=== PATIENT | female | born 1930 | race African-American/Black ===

== ENCOUNTER 2016-11-01 09:40 | Emergency (ER) | payer OTHER ==
[~2016-11-01] VITALS: Ht 160 cm; Wt 89.5 kg
[~2016-11-01 09:40] MED LIST: AMLO5TAB96 PO; ATOR80TA41 PO; COZA50TA PO; DYAZ37.57 PO; FIORTAB4 PO; GLUC10TA3 PO; HYDR-3533 PO; LANTUSP SQ; LEVO.05 PO; LORTA5 PO; NOVOLOGP2 SQ; RANI150 PO; SYMB80AE INH; TAB-TAB PO; VITA-13 PO
[2016-11-01 09:43] VITALS: BP 145/72; PULSE 90; RESP 20; TEMP 98.5; O2SAT 100
--- NOTE | 2016-11-01 10:11 | PD ---
HPI Chief Complaint: Injury Time Seen by Provider: 10:05 Travel History International Travel<30 days: No Contact w/Intl Traveler<30days: No Traveled to known affect area: No History of Present Illness HPI 86-year-old female here for evaluation of right foot pain. Patient reports that she has had this pain intermittently, however since yesterday it has been constant and severe. She denies trauma. Pain is worse with movement and palpation. She shows me diclofenac cream that her diamond die polisher prescribed to her about a year ago which she has been trying without relief. No fevers. PFSH Past Medical History Hx Anticoagulant Therapy: Yes Arthritis: Yes Autoimmune Disease: No Blood Disorders: No Heart Rhythm Problems: No Cancer: No Cardiac Catheterization: No Cardiovascular Problems: Yes (HTN) High Cholesterol: Yes Chemotherapy: No Chest Pain: No Congestive Heart Failure: No Cerebrovascular Accident: No Diabetes: Yes Diminished Hearing: No Endocrine: Yes Gastrointestinal Disorders: Yes (GALLSTONES) GERD: Yes Genitourinary: Yes (URGENCY) Hepatitis: No Hypertension: Yes Immune Disorder: No Implanted Vascular Access Dvce: Yes Kidney Stones: No Musculoskeletal: Yes (CHRONIC BACK PAIN) Neurologic: Yes Psychiatric: No Reproductive: No Respiratory: Yes (Asthma) Integumentary: Yes (SHINGLES) Migraines: Yes Myocardial Infarction: No Radiation Therapy: No Renal Failure: No Thyroid Disease: Yes Ulcer: No PNEUMOCCOCAL Vaccine (Year): 2009 ?: Unknown Menopausal: Yes : 5 Para: 5 Miscarriage: 0 : 0 Past Surgical History Abdominal Surgery: Yes ( ) Appendectomy: Yes Body Medical Devices: cataract surgery,LEFT KNEE Cholecystectomy: No Coronary Artery Bypass Graft: No Eye Surgery: Yes (taylor cataracts removed) Gynecologic Surgery: Yes (HYSTERECTOMY) Hysterectomy: Yes Insulin Pump: No Joint Replacement: No Pacemaker: No Thoracic Surgery: No Other Surgery: Yes (RIGHT CARPAL TUNNEL; LYMPH NODE REMOVAL NECK) Social History Alcohol Use: No Tobacco Use: No Substance Use: No Allergies-Medications (Allergen,Severity, Reaction): Coded Allergies: Flexeril (Verified Allergy, Intermediate, DIZZY, 11/01/16) Reported Meds & Prescriptions Reported Meds & Active Scripts Active Reported [Insulin] Clopidogrel (Clopidogrel Bisulfate) 75 Mg Tab 75 Mg PO DAILY Triamterene-Hydrochlorothiazide 37.5-25 Mg Tab 1 Tab PO DAILY Levothyroxine (Levothyroxine Sodium) 50 Mcg Tab 50 Mcg PO DAILY Losartan (Losartan Potassium) 100 Mg Tab 100 Mg PO DAILY Ranitidine (Ranitidine HCl) 150 Mg Tab 150 Mg PO BID Divalproex ER (Divalproex Sodium) 250 Mg Haylee 250 Mg PO DAILY Review of Systems Except as stated in HPI: all other systems reviewed are Neg Physical Exam Narrative GENERAL: Well-developed, well-nourished, no apparent distress. SKIN: Focused skin assessment warm/dry. No rash. No ulcerations. HEAD: Atraumatic. Normocephalic. EYES: Pupils equal and round. No scleral icterus. No injection or drainage. ENT: Mucous membranes pink and moist. CARDIOVASCULAR: Regular rate and rhythm. Bilateral dorsalis pedis pulses are brisk and equal. RESPIRATORY: No accessory muscle use. Clear to auscultation. Breath sounds equal bilaterally. GASTROINTESTINAL: Abdomen soft, non-tender, nondistended. Hepatic and splenic margins not palpable. MUSCULOSKELETAL: Right foot/ankle is without obvious deformity, without edema, without erythema, without skin lesions or ulcerations, is warm throughout with normal capillary refill. There is tenderness over the dorsal aspect of the entire right foot. Bilateral calves are supple, nontender. NEUROLOGICAL: Awake and alert. No obvious cranial nerve deficits. Motor grossly within normal limits. Normal speech. PSYCHIATRIC: Appropriate mood and affect; insight and judgment normal. Data Data Last Documented VS Vital Signs Date Time Temp Pulse Resp B/P Pulse Ox O2 Delivery O2 Flow Rate FiO2 11/01/16 09:43 98.5 90 20 145/72 100 Room Air Orders Foot, Complete ([id number]) (11/01/16 ) Tramadol (Ultram) (11/01/16 10:15) [facility] Medical Decision Making Medical Screen Exam Complete: Yes Emergency Medical Condition: Yes Differential Diagnosis Osteoarthritis, stress fracture, osteomyelitis unlikely, DVT unlikely, Narrative Course Vital signs show heart rate 90, blood pressure 145/72, pulse ox 100% on room air , oral temp of 98.5F. Right foot x-ray: CONCLUSION: Moderate severity tarsometatarsal joint arthrosis. Patient was made aware of all findings. She is resting comfortably watching TV. She is stable for discharge home with outpatient follow-up with her diamond die polisher this week. I will discharge her home with a pain medication. She was instructed not to drive while taking this medication. She was informed on when to return to the emergency department. She verbalizes understanding and agreement with plan. Diagnosis Primary Impression: Right foot pain Additional Impression: Osteoarthritis Qualified Code: M19.071 - Osteoarthritis of right foot, unspecified osteoarthritis type Referrals: Manager Transmission 3 days Additional Instructions: Follow-up with your diamond die polisher this week. Return to the emergency department for worsening symptoms or any other concerns. Scripts Tramadol 50 Mg Tab50 Mg PO Q8H PRN (PAIN) #15 TAB Ref 0 Prov:Gilbert Ramos MD 11/01/16 Disposition: 01 DISCHARGE HOME Condition: Stable Gilbert Ramos MD November 01, 2016 10:11
[2016-11-01] MEDS ORDERED: traMADol HCL 50 MG TAB PO ONE (10:15)
[2016-11-01] MEDS ORDERED: RANI150T PO (10:24)
[2016-11-01] MEDS ORDERED: LOSA100T PO (10:24)
[2016-11-01] MEDS ORDERED: DIVA250T3 PO (10:24)
[2016-11-01] MEDS ORDERED: CLOP75TA PO (10:24)
[2016-11-01] MEDS ORDERED: INSULIN (10:24)
[2016-11-01] MEDS ORDERED: LEVO50TA4 PO (10:24)
[2016-11-01] MEDS ORDERED: TRIA37.5 PO (10:24)
--- NOTE | 2016-11-01 11:38 | RADRPT ---
EXAM DATE/TIME: 11/01/2016 10:28 [facility] COMPARISON: No previous studies available for comparison. INDICATIONS : Right foot pain on and off for the past month. MEDICAL HISTORY : Diabetes mellitus type II. SURGICAL HISTORY : None. ENCOUNTER: Initial ACUITY: 1 month PAIN SCORE: 10/10 LOCATION: Right foot. FINDINGS: 3 views of the right foot. Moderate-sized osteophytes and moderate severity narrowing at the tarsomet atarsal joints. Alignment within normal limits. No evidence of fracture. No evidence of focal bone erosion or abnorma l periosteal reaction. CONCLUSION: Moderate severity tarsometatarsal joint arthrosis. Blair Lopez MD on November 01, 2016 at 11:36 Board Certified Radiologist. This report was verified electronically.
[2016-11-01] MEDS ORDERED: TRAM50TA PO (11:45)
== END 2016-11-01 12:30 | disposition home or self-care (01) ==
LOC: NEPD 09:40
DX: M79.671 Pain in right foot (principal); M19.071 Primary osteoarthritis, right ankle and foot; I10 Essential (primary) hypertension; E78.00 Pure hypercholesterolemia, unspecified; E11.9 Type 2 diabetes mellitus without complications; K21.9 Gastro-esophageal reflux disease without esophagitis; J45.909 Unspecified asthma, uncomplicated; Z79.01 Long term (current) use of anticoagulants
CPT/HCPCS: 73630; 99283

== ENCOUNTER 2016-11-14 01:41 | Observation (INO) | payer OTHER ==
[~2016-11-14] VITALS: Ht 160 cm; Wt 89.0 kg
[2016-11-14] VITALS (9 sets, daily range): BP systolic 129–170; BP diastolic 57–99; PULSE 66–89; RESP 16–23; TEMP 97.5–98.7; O2SAT 97–100
[~2016-11-14 01:41] MED LIST changes: -AMLO5TAB96 PO; -ATOR80TA41 PO; +CLOP75TA PO; -COZA50TA PO; +DIVA250T3 PO; -DYAZ37.57 PO; -FIORTAB4 PO; -GLUC10TA3 PO; -HYDR-3533 PO; +INSULIN; -LANTUSP SQ; -LEVO.05 PO; +LEVO50TA4 PO; -LORTA5 PO; +LOSA100T PO; -NOVOLOGP2 SQ; -RANI150 PO; +RANI150T PO; -SYMB80AE INH; -TAB-TAB PO; +TRAM50TA PO; +TRIA37.5 PO; -VITA-13 PO
[2016-11-14] MEDS ORDERED: NOVONP2 SQ (01:51)
[2016-11-14] MEDS ORDERED: SODIUM CHLORIDE 0.9% FLUSH 10 ML FLUSH IV FLUSH PRN ×2 (03:00→05:00)
--- NOTE | 2016-11-14 03:13 | PD ---
HPI Chief Complaint: Pain: Acute or Chronic Time Seen by Provider: 02:51 Travel History International Travel<30 days: No Contact w/Intl Traveler<30days: No Traveled to known affect area: No History of Present Illness HPI 86-year-old female presents to the emergency department by EMS transport from home for feeling 'sick'. According the patient she has been in her usual state of health with history of diabetes and hypertension and kidney disease. Patient states that she went to bed feeling well last evening. Patient states she was awakened from sleep just feeling 'sick'. No nausea no vomiting but felt chilled and thought perhaps she was feverish. 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 Patient denies any chest pain or shortness of breath or pleuritic pain. Patient states since arriving to the emergency department she's noted some abdominal discomfort. Patient denies any lower extremity numbness tingling or weakness bladder or bowel dysfunction or saddle anesthesia. Overall discomfort is 6/10 in intensity. Patient does not take blood thinning agent. Patient has been taking her medications as prescribed. PFSH Past Medical History Narrative Medical Hypertension diabetes dyslipidemia gallstones status post cholecystectomy chronic pain syndrome shoulder arthritis cholecystectomy appendectomy hysterectomy eye surgery carpal tunnel release; no tobacco use; nursing notes reviewed Hx Anticoagulant Therapy: Yes Arthritis: Yes Autoimmune Disease: No Blood Disorders: No Heart Rhythm Problems: No Cancer: No Cardiac Catheterization: No Cardiovascular Problems: Yes (HTN) High Cholesterol: Yes Chemotherapy: No Chest Pain: No Congestive Heart Failure: No Cerebrovascular Accident: No Diabetes: Yes Patient Takes Glucophage: No Diminished Hearing: No Endocrine: Yes Gastrointestinal Disorders: Yes (GALLSTONES) GERD: Yes Genitourinary: Yes (URGENCY) Hepatitis: No Hypertension: Yes Immune Disorder: No Implanted Vascular Access Dvce: Yes Kidney Stones: No Musculoskeletal: Yes (CHRONIC BACK PAIN) Neurologic: Yes Psychiatric: No Reproductive: No Respiratory: Yes (Asthma) Integumentary: Yes (SHINGLES) Migraines: Yes Myocardial Infarction: No Radiation Therapy: No Renal Failure: No Thyroid Disease: Yes Ulcer: No PNEUMOCCOCAL Vaccine (Year): 2009 Menopausal: Yes : 5 Para: 5 Miscarriage: 0 : 0 Past Surgical History Abdominal Surgery: Yes ( ) Appendectomy: Yes Body Medical Devices: cataract surgery,LEFT KNEE Cholecystectomy: No Coronary Artery Bypass Graft: No Eye Surgery: Yes (taylor cataracts removed) Gynecologic Surgery: Yes (HYSTERECTOMY) Hysterectomy: Yes Insulin Pump: No Joint Replacement: No Pacemaker: No Thoracic Surgery: No Other Surgery: Yes (RIGHT CARPAL TUNNEL; LYMPH NODE REMOVAL NECK) Social History Alcohol Use: No Tobacco Use: No (many yrs ago) Substance Use: No Allergies-Medications (Allergen,Severity, Reaction): Coded Allergies: Flexeril (Verified Allergy, Intermediate, DIZZY, 11/14/16) Reported Meds & Prescriptions Reported Meds & Active Scripts Active Reported Novolin N Inj (Insulin Human NPH) 1,000 Unit/10 Ml Vial 0 SQ DIRECTED Sliding Scale As Directed. Triamterene-Hydrochlorothiazide 37.5-25 Mg Tab 1 Tab PO DAILY Levothyroxine (Levothyroxine Sodium) 50 Mcg Tab 50 Mcg PO DAILY Ranitidine (Ranitidine HCl) 150 Mg Tab 150 Mg PO BID Divalproex ER (Divalproex Sodium) 250 Mg Haylee 250 Mg PO DAILY Review of Systems Except as stated in HPI: all other systems reviewed are Neg General / Constitutional: Positive: Chills, No: Fever HENT: No: Congestion Cardiovascular: No: Chest Pain or Discomfort, Diaphoresis, Syncope, Dyspnea on exertion Respiratory: No: Cough, Shortness of Breath, Wheezing Gastrointestinal: Positive: Abdominal Pain, No: Nausea, Vomiting, Diarrhea Genitourinary: No: Urgency, Frequency, Dysuria, Flank Pain Musculoskeletal: Positive: Pain, No: Myalgias, Arthralgias Skin: No Rash Neurologic: No: Weakness, Dizziness, Syncope, Focal Abnormalities, Coordination Problem Psychiatric: Positive: Anxiety Hematologic/Lymphatic: No: Lymph Node Enlargement Physical Exam Narrative GENERAL: Well-developed well-nourished female in no acute distress no respiratory distress; GCS 15 SKIN: Warm and dry. HEAD: Atraumatic. Normocephalic. EYES: Pupils equal and round. No scleral icterus. No injection or drainage. ENT: No nasal bleeding or discharge. Mucous membranes pink and moist. NECK: Trachea midline. No JVD. CARDIOVASCULAR: Regular rate and rhythm. RESPIRATORY: No accessory muscle use. Clear to auscultation. Breath sounds equal bilaterally. GASTROINTESTINAL: Abdomen soft, non-tender, nondistended. Hepatic and splenic margins not palpable. MUSCULOSKELETAL: Extremities without clubbing, cyanosis, or edema. No obvious deformities. NEUROLOGICAL: Awake and alert. No obvious cranial nerve deficits. Motor grossly within normal limits. Five out of 5 muscle strength in the arms and legs. No pronator drift no limb ataxia. Normal speech. PSYCHIATRIC: Appropriate mood and affect; insight and judgment normal. Data Data Last Documented VS Vital Signs Date Time Temp Pulse Resp B/P Pulse Ox O2 Delivery O2 Flow Rate FiO2 11/14/16 03:12 18 99 Room Air 11/14/16 01:44 98.4 89 131/99 Orders Complete Blood Count With Diff (11/14/16 02:51) Comprehensive Metabolic Panel (11/14/16 02:51) Lipase (11/14/16 02:51) Lactic Acid (11/14/16 02:51) Urinalysis - C+S If Indicated (11/14/16 02:51) Iv Access Insert/Monitor (11/14/16 02:51) Ecg Monitoring (11/14/16 02:51) Oximetry (11/14/16 02:51) Sodium Chloride 0.9% Flush (Ns Flush) (11/14/16 03:00) Electrocardiogram (11/14/16 02:51) Troponin I (11/14/16 02:51) Chest, Single Ap (11/14/16 ) Magnesium (Mg) (11/14/16 02:51) Sodium Chlorid 0.9% 500 Ml Inj (Ns 500 M (11/14/16 04:30) Potassium, Serum (K) (11/14/16 04:17) Admit Order (Ed Use Only) (11/14/16 ) ^ Saline Lock (11/14/16 05:00) Resp Oxygen Donnie C Titrat 1-4 L (11/14/16 ) Notify Dr: Other (11/14/16 05:00) Sodium Chloride 0.9% Flush (Ns Flush) (11/14/16 09:00) Sodium Chloride 0.9% Flush (Ns Flush) (11/14/16 05:00) Pantoprazole Inj (Protonix Inj) (11/14/16 05:15) Nitroglycerin 2% Oint (Nitroglycerin 2% (11/14/16 05:15) Ondansetron Inj (Zofran Inj) (11/14/16 05:15) Labs Laboratory Tests Test 11/14/16 11/14/16 11/14/16 11/14/16 02:40 03:07 04:30 05:00 White Blood Count 9.2 TH/MM3 Red Blood Count 3.76 MIL/MM3 Hemoglobin 10.8 GM/DL Hematocrit 32.9 % Mean Corpuscular Volume 87.7 FL Mean Corpuscular Hemoglobin 28.8 PG Mean Corpuscular Hemoglobin 32.8 % Concent Red Cell Distribution Width 14.4 % Platelet Count 213 TH/MM3 Mean Platelet Volume 10.5 FL Neutrophils (%) (Auto) 53.8 % Lymphocytes (%) (Auto) 36.4 % Monocytes (%) (Auto) 7.3 % Eosinophils (%) (Auto) 2.0 % Basophils (%) (Auto) 0.5 % Neutrophils # (Auto) 5.0 TH/MM3 Lymphocytes # (Auto) 3.4 TH/MM3 Monocytes # (Auto) 0.7 TH/MM3 Eosinophils # (Auto) 0.2 TH/MM3 Basophils # (Auto) 0.0 TH/MM3 CBC Comment DIFF FINAL Differential Comment Sodium Level 139 MEQ/L Potassium Level 5.3 MEQ/L 4.3 MEQ/L Chloride Level 107 MEQ/L Carbon Dioxide Level 22.1 MEQ/L Anion Gap 10 MEQ/L Blood Urea Nitrogen 44 MG/DL Creatinine 1.81 MG/DL Estimat Glomerular Filtration 32 ML/MIN Rate Random Glucose 167 MG/DL Calcium Level 8.5 MG/DL Magnesium Level 1.7 MG/DL Total Bilirubin 0.2 MG/DL Aspartate Amino Transf 15 U/L (AST/SGOT) Alanine Aminotransferase 20 U/L (ALT/SGPT) Alkaline Phosphatase 81 U/L Troponin I 0.07 NG/ML Total Protein 7.2 GM/DL Albumin 3.3 GM/DL Lipase 362 U/L Lactic Acid Level 0.8 mmol/L Urine Color LIGHT-YELLOW Urine Turbidity HAZY Urine pH 5.0 Urine Specific [place] 1.009 Urine Protein NEG mg/dL Urine Glucose (UA) NEG mg/dL Urine Ketones NEG mg/dL Urine Occult Blood NEG Urine Nitrite NEG Urine Bilirubin NEG Urine Urobilinogen LESS THAN 2.0 MG/DL Urine Leukocyte Esterase SMALL Urine RBC 1 /hpf Urine WBC 1 /hpf Urine Squamous Epithelial 1 /hpf Cells Urine Mucus FEW /lpf Microscopic Urinalysis Comment CULT NOT INDICATED MDM Medical Decision Making Medical Screen Exam Complete: Yes Emergency Medical Condition: Yes Medical Record Reviewed: Yes Interpretation(s) Last Impressions Chest X-Ray 11/14/16 0000 Signed Impressions: Service Date/Time: Monday, November 14, 2016 03:12 - CONCLUSION: 1. No acute cardiopulmonary disease. Darrell Clifford MD CBC & BMP Diagram 11/14/16 02:40 Vital Signs Date Time Temp Pulse Resp B/P Pulse Ox O2 Delivery O2 Flow Rate FiO2 11/14/16 03:12 18 99 Room Air 11/14/16 01:44 98.4 89 16 131/99 100 Differential Diagnosis Generalized weakness, UTI, sepsis, arrhythmia, electrolyte disturbance, chest pain, ACS, abdominal pain, colitis, diverticulitis, food borne illness, aneurysm Narrative Course IV access obtained specimens collected and sent for resulting EKG performed She reports she feels clinically improved has noted increased belching does not have any abdominal discomfort at this time there is been no nausea or vomiting or shortness of breath denies chest pain Lab values resulted and identified to have improving renal insufficiency; there is a mild elevation of potassium at 5.3 Patient given IV fluid bolus 500 cc normal saline and recall left of serum potassium performed Patient identified to have elevation of troponin I 0.07 which may reflect renal function however in view of patient's generalized weakness and not feeling well upon awakening will admit patient for serial enzymes and further cardiac assessment Call placed to [facility] service Physician Communication Physician Communication call placed to [facility] --discussed with Dr Camargo --will admit Diagnosis Primary Impression: Generalized weakness Additional Impressions: Elevated troponin Renal insufficiency Admitting Information Admitting Physician Requests: Observation Ernestina Yanes MD Nov 14, 2016 03:13
[2016-11-14 03:37] LABS: BASOPHIL % 0.5 % (0.0-2.0); EOSINOPHIL # 0.2 TH/MM3 (0-0.4); HEMATOCRIT 32.9 % (35.0-46.0); HEMO FLAGS DIFF FINAL; LYMPH % 36.4 % (9.0-44.0); LYMPHOCYTE # 3.4 TH/MM3 (1.0-4.8); MEAN CELL VOLUME 87.7 FL (80.0-100.0); MEAN CORPUSCULAR HEMOGLOBIN 28.8 PG (27.0-34.0); MEAN CORPUSCULAR HGB CONC 32.8 % (32.0-36.0); MONO % 7.3 % (0.0-8.0); NEUT % 53.8 % (16.0-70.0); PLATELET COUNT 213 TH/MM3 (150-450); RED BLOOD COUNT 3.76 MIL/MM3 (4.00-5.30); RED CELL DISTRIBUTION WIDTH 14.4 % (11.6-17.2); WHITE BLOOD COUNT 9.2 TH/MM3 (4.0-11.0)
[2016-11-14 03:53] LABS: ALT (GPT) 20 U/L (10-53); ANION GAP 10 MEQ/L (5-15); AST (GOT) 15 U/L (15-37); BICARBONATE 22.1 MEQ/L (21.0-32.0); BLOOD UREA NITROGEN 44 MG/DL (7-18); CHLORIDE 107 MEQ/L (98-107); GLOMERULAR FILTRATION RATE 32 ML/MIN (>89); MAGNESIUM 1.7 MG/DL (1.5-2.5); POTASSIUM 5.3 MEQ/L (3.5-5.1); SODIUM (NA) 139 MEQ/L (136-145)
[2016-11-14 03:57] LABS: ALKALINE PHOSPHATASE 81 U/L (45-117); TOTAL BILIRUBIN ADULT 0.2 MG/DL (0.2-1.0)
--- NOTE | 2016-11-14 04:01 | RADRPT ---
EXAM DATE/TIME: 11/14/2016 03:12 [facility] COMPARISON: CHEST SINGLE AP, July 21, 2013, 23:00. INDICATIONS : Cough and congestion. MEDICAL HISTORY : None. SURGICAL HISTORY : None. ENCOUNTER: Initial ACUITY: 2 days PAIN SCORE: 0/10 LOCATION: chest FINDINGS: A single view of the chest demonstrates the lungs to be symmetrically aerated without evidence of mas s, infiltrate or effusion. The cardiomediastinal contours are unremarkable. Osseous structures are intact. CONCLUSION: 1. No acute cardiopulmonary disease. Darrell Clifford MD on November 14, 2016 at 3:54 Board Certified Radiologist. This report was verified electronically.
[2016-11-14] MEDS ORDERED: SODIUM CHLORID 0.9% 500 ML INJ 500 ML IV ONE (04:30)
[2016-11-14 04:57] LABS: BLOOD, URINE NEG (NEG); COMMENT (UR) CULT NOT INDICATED; CULTURE IF INDICATED CULT NOT INDICATED; GLUCOSE,URINE NEG (NEG); KETONE, URINE NEG (NEG); MUCUS URINE FEW /lpf (OCC); NITRITE,URINE NEG (NEG); SQUAMOUS EPITHELIAL CELL URINE 1 /hpf (0-5); URINE COLOR LIGHT-YELLOW (YELLW/STRAW)
[2016-11-14] MEDS ORDERED: SODIUM CHLORIDE 0.9% FLUSH 10 ML FLUSH IVF PRN (05:00)
[2016-11-14] MEDS ORDERED: NALOXONE HCL 0.4 MG/ML AMP IV PRN (05:00)
[2016-11-14] MEDS ORDERED: ONDANSETRON HCL 4 MG/2 ML VIAL IV PUSH ONE (05:15)
[2016-11-14] MEDS ORDERED: PANTOPRAZOLE SODIUM 40 MG VIAL IV PUSH ONE (05:15)
[2016-11-14] MEDS ORDERED: NITROGLYCERIN 2% OINT 1 GM PACKET TOPICAL ONE (05:15)
[2016-11-14] MEDS ORDERED: LEVOTHYROXINE SODIUM 50 MCG TAB PO SCH (08:41)
[2016-11-14] MEDS ORDERED: DEXTROSE 50% IN WATER 50 ML VIAL(D50) IV PRN (08:45)
[2016-11-14] MEDS ORDERED: SODIUM CHLOR 0.9% 1000 ML INJ 1,000 ML IV SCH (08:45)
[2016-11-14] MEDS ORDERED: GLUCAGON 1 MG/ML VIAL OTHER PRN (08:45)
[2016-11-14] MEDS ORDERED: FAMOTIDINE 20 MG TAB PO SCH (09:00)
[2016-11-14] MEDS ORDERED: SODIUM CHLORIDE 0.9% FLUSH 10 ML FLUSH IV FLUSH SCH ×2 (09:00)
[2016-11-14] MEDS ORDERED: DIVALPROEX SODIUM E.R. 250 MG TAB PO SCH (09:00)
[2016-11-14] MEDS ORDERED: INSULIN ASPART SUPPLEMENTAL SCALE SQ SCH (11:00)
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
[2016-11-14] MEDS ORDERED: OMEP40CA2 PO (17:16)
[2016-11-14] MEDS ORDERED: WALKER WHEELS/F1 MIS (17:16)
--- NOTE | 2016-11-14 17:17 | HHI.FF ---
Face to Face Verification Diagnosis: (1) Generalized weakness Physical Therapy Order: Evaluate and Treat Home Health Nursing Order: Nursing assessment with vital signs I have seen patient Liliana Easley on 11/14/16. My clinical findings support the need for the requested home health care services because: Deconditioned w/ increased weakness I certify that my clinical findings support that this patient is homebound because: Unsafe to leave home unassisted Darren Ramirez MD Nov 14, 2016 17:17
[2016-11-14] MEDS ORDERED: PANTOPRAZOLE SOD 40 MG DELAYED RELEASE TAB PO ONE (17:30)
--- NOTE | 2016-11-15 15:08 | EKG ---
Date Performed: 11/14/2016 Time Performed: 15:51:02 PTAGE: 86 years EKG: Intraventricular conduction disturbance Diffuse nonspecific ST-T change Since PREVIOUS TRACING 11/14/2016, no significant change. PREVIOUS TRACIN11/14/2016 09.43 DOCTOR: David De La Paz Interpretating Date/Time 11/15/2016 15:07:55
--- NOTE | 2016-11-15 15:08 | EKG ---
Date Performed: 11/14/2016 Time Performed: 09:43:29 PTAGE: 86 years EKG: Borderline first degree AV block Diffuse nonspecific ST-T change Slight intraventricular co nduction disturbance Borderline voltage criteria for LVH Since PREVIOUS TRACING 03/08/2014, voltage criteria for LVH somewhat diminished, ST-T changes are about the same. PREVIOUS TRACIN03/08/2014 06.26 DOCTOR: David De La Paz Interpretating Date/Time 11/15/2016 15:06:56
== END 2016-11-14 19:17 | disposition home or self-care (01) ==
LOC: NEPC 01:41 → NEDA 05:02 → NEPHCDU 06:16
PROVIDERS: ADMIT Hospitalist; ATTEND Hospitalist
DX: R53.1 Weakness (principal); R74.8 Abnormal levels of other serum enzymes; N18.4 Chronic kidney disease, stage 4 (severe); R10.9 Unspecified abdominal pain; E03.9 Hypothyroidism, unspecified; E11.22 Type 2 diabetes mellitus with diabetic chronic kidney disease; G89.4 Chronic pain syndrome; I12.9 Hypertensive chronic kidney disease with stage 1 through stage 4 chronic kidney disease, or unspecified chronic kidney disease; R94.31 Abnormal electrocardiogram [ECG] [EKG]; M19.019 Primary osteoarthritis, unspecified shoulder; J45.909 Unspecified asthma, uncomplicated; E78.5 Hyperlipidemia, unspecified; E78.00 Pure hypercholesterolemia, unspecified; G40.909 Epilepsy, unspecified, not intractable, without status epilepticus; K21.9 Gastro-esophageal reflux disease without esophagitis; Z87.891 Personal history of nicotine dependence; Z79.01 Long term (current) use of anticoagulants
CPT/HCPCS: 71010; 80053; 81001; 82550; 82948; 83605; 83690; 83735; 84132; 84484; 85025; 93005; 97162; 99285; C9113; G0378; G8987; G8988; J1815; J2405; J7030; J7040

== ENCOUNTER 2016-11-29 15:27 | Emergency (ER) | payer OTHER ==
[~2016-11-29] VITALS: Ht 160 cm; Wt 90.0 kg
[~2016-11-29 15:27] MED LIST changes: -CLOP75TA PO; -INSULIN; -LOSA100T PO; +NOVONP2 SQ; +OMEP40CA2 PO; -RANI150T PO; -TRAM50TA PO; +WALKER WHEELS/F1 MIS
[2016-11-29 15:32] VITALS: BP 181/86; PULSE 98; RESP 16; TEMP 98.5; O2SAT 100
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
[2016-11-29 15:48] VITALS: BP 169/80; PULSE 98; RESP 18; O2SAT 100
[2016-11-29] MEDS ORDERED: LANTUS2P SQ (16:38)
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
[2016-11-29] MEDS ORDERED: ACETAMINOPHEN/HYDROcodone 325 MG/5 MG TAB PO ONE (18:00)
--- NOTE | 2016-11-30 12:27 | EKG ---
Date Performed: 11/29/2016 Time Performed: 15:53:38 PTAGE: 86 years EKG: Sinus rhythm WITH ISOLATED PREMATURE VENTRICULAR COMPLEX LEFT VENTRICULAR HYPERTROPHY AND ST-T CHANGE ABNORMAL EC G PREVIOUS TRACING : 11/14/2016 15.51 Compared to prior tracing no significant change DOCTOR: Thompson Christine Interpretating Date/Time 11/30/2016 12:24:24
== END 2016-11-29 18:41 | disposition home or self-care (01) ==
LOC: NEPE 15:27
DX: R07.89 Other chest pain (principal); S16.1XXA Strain of muscle, fascia and tendon at neck level, initial encounter; I10 Essential (primary) hypertension; E11.9 Type 2 diabetes mellitus without complications; J45.909 Unspecified asthma, uncomplicated; V49.40XA Driver injured in collision with unspecified motor vehicles in traffic accident, initial encounter; Z79.4 Long term (current) use of insulin; Z87.891 Personal history of nicotine dependence
CPT/HCPCS: 70450; 71020; 72125; 93005; 99285

== ENCOUNTER 2016-12-26 09:56 | Inpatient (IN) | payer OTHER, MEDICARE ==
[~2016-12-26] VITALS: Ht 160 cm; Wt 94.0 kg
[2016-12-26] VITALS (17 sets, daily range): BP systolic 125–155; BP diastolic 61–107; PULSE 58–79; RESP 18–25; TEMP 98–98.9; O2SAT 0–100
[~2016-12-26 09:56] MED LIST changes: +LANTUS2P SQ; -NOVONP2 SQ
[2016-12-26] MEDS ORDERED: LORazepam 2 MG/ML VIAL IV PUSH ONE (10:30)
[2016-12-26] MEDS ORDERED: MORPHINE SULFATE 4 MG/ML INJ IV PUSH ONE (10:30)
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
[2016-12-26 11:11] LABS: AUTOMATED NEUTROPHIL # 4.1 TH/MM3 (1.8-7.7); BASOPHIL % 0.6 % (0.0-2.0); EOSINOPHIL # 0.3 TH/MM3 (0-0.4); EOSINOPHIL % 3.8 % (0.0-4.0); HEMATOCRIT 33.4 % (35.0-46.0); HEMO FLAGS DIFF FINAL; LYMPH % 32.6 % (9.0-44.0); LYMPHOCYTE # 2.3 TH/MM3 (1.0-4.8); MEAN CELL VOLUME 86.8 FL (80.0-100.0); MEAN CORPUSCULAR HEMOGLOBIN 28.2 PG (27.0-34.0); MEAN CORPUSCULAR HGB CONC 32.4 % (32.0-36.0); MONO % 5.8 % (0.0-8.0); NEUT % 57.2 % (16.0-70.0); PLATELET COUNT 221 TH/MM3 (150-450); RED BLOOD COUNT 3.85 MIL/MM3 (4.00-5.30); RED CELL DISTRIBUTION WIDTH 13.5 % (11.6-17.2); WHITE BLOOD COUNT 7.1 TH/MM3 (4.0-11.0)
[2016-12-26] MEDS ORDERED: MORPHINE SULFATE 8 MG/ML INJ IV PUSH ONE (11:15)
[2016-12-26] MEDS: SODIUM CHLORIDE 0.9% FLUSH 10 ML FLUSH IVF PRN (11:17)
[2016-12-26 11:29] LABS: APTT (PATIENT) 24.5 SEC (24.3-30.1); PROTHROMBIN TIME - PATIENT 11.1 SEC (9.8-11.6)
[2016-12-26 11:35] LABS: ANION GAP 7 MEQ/L (5-15); AST (GOT) 12 U/L (15-37); BICARBONATE 24.8 MEQ/L (21.0-32.0); BLOOD UREA NITROGEN 26 MG/DL (7-18); CHLORIDE 109 MEQ/L (98-107); GLOMERULAR FILTRATION RATE 49 ML/MIN (>89); MAGNESIUM 1.6 MG/DL (1.5-2.5); POTASSIUM 4.2 MEQ/L (3.5-5.1); SODIUM (NA) 141 MEQ/L (136-145)
[2016-12-26 11:36] LABS: ALT (GPT) 17 U/L (10-53)
[2016-12-26 11:40] LABS: ALKALINE PHOSPHATASE 73 U/L (45-117); CREATINE KINASE 149 U/L (26-192); TOTAL BILIRUBIN ADULT 0.4 MG/DL (0.2-1.0)
[2016-12-26 11:52] LABS: CKMB 3.3 NG/ML (0.5-3.6)
--- NOTE | 2016-12-26 12:36 | RADRPT ---
EXAM DATE/TIME: 12/26/2016 10:28 [facility] COMPARISON: CHEST PA & LAT, November 29, 2016, 16:08. INDICATIONS : Chest pain and cough. MEDICAL HISTORY : Diabetes mellitus type II. SURGICAL HISTORY : None. ENCOUNTER: Initial ACUITY: 1 day PAIN SCORE: 4/10 LOCATION: Bilateral chest FINDINGS: The lungs are clear without infiltrate, nodule, or mass. There is no appreciable pleural effusion fo r technique. Chronic degenerative changes are present in the right shoulder and not changed. Slight cardiomegaly has not changed. There are atherosclerotic calcifications of the aorta due to chronic at herosclerotic disease. CONCLUSION: No appreciable change. Eliud Peguero MD on December 26, 2016 at 12:34 Board Certified Radiologist. This report was verified electronically.
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
[2016-12-26] MEDS ORDERED: VITA100064 PO (16:29)
[2016-12-26] MEDS ORDERED: TEMAZEPAM 7.5 MG CAP PO PRN (16:30)
[2016-12-26] MEDS ORDERED: HYDR25TA5 PO (16:35)
[2016-12-26] MEDS ORDERED: RANI150T PO (16:35)
[2016-12-26] MEDS ORDERED: LOSA100T PO (16:35)
[2016-12-26] MEDS ORDERED: CLOP75TA PO (16:35)
[2016-12-26] MEDS ORDERED: BACL10TA PO (16:44)
[2016-12-26] MEDS ORDERED: ACETAMINOPHEN 325 MG TAB PO PRN (16:45)
[2016-12-26] MEDS ORDERED: NALOXONE HCL 0.4 MG/ML AMP IV PRN (16:45)
[2016-12-26] MEDS ORDERED: ACETAMINOPHEN/HYDROcodone 325 MG/7.5 MG TAB PO PRN (16:45)
[2016-12-26] MEDS ORDERED: ASPIRIN 325 MG TAB PO ONE (16:45)
[2016-12-26] MEDS ORDERED: GLUCAGON 1 MG/ML VIAL IM PRN (16:45)
[2016-12-26] MEDS ORDERED: DEXTROSE 50% IN WATER 50 ML VIAL(D50) IV PRN (16:45)
[2016-12-26] MEDS ORDERED: ENALAPRILAT 1.25 MG/ML VIAL IV PUSH PRN (16:45)
[2016-12-26] MEDS: CLOPIDOGREL 75 MG TAB PO SCH (18:36)
[2016-12-26] MEDS ORDERED: NITROGLYCERIN 0.4 MG SL 25 TABS/BTL SL PRN (20:00)
[2016-12-26] MEDS ORDERED: PILL SPLITTER OTHER PRN (20:45)
[2016-12-26] MEDS ORDERED: HEPARIN-D5W INJ 250 ML IV SCH (21:00)
[2016-12-26] MEDS: INSULIN ASPART SUPPLEMENTAL SCALE SQ SCH (21:00)
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
[2016-12-26 22:15] LABS: HEMATOCRIT 31.4 % (35.0-46.0); MEAN CELL VOLUME 88.1 FL (80.0-100.0); MEAN CORPUSCULAR HEMOGLOBIN 29.1 PG (27.0-34.0); PLATELET COUNT 179 TH/MM3 (150-450); RED BLOOD COUNT 3.56 MIL/MM3 (4.00-5.30); RED CELL DISTRIBUTION WIDTH 13.8 % (11.6-17.2); REVIEW FLAG FINAL; WHITE BLOOD COUNT 6.8 TH/MM3 (4.0-11.0)
[2016-12-26 22:24] LABS: APTT (PATIENT) 24.5 SEC (24.3-30.1)
[2016-12-26] MEDS: METOPROLOL TARTRATE 25 MG TAB PO SCH (23:29)
[2016-12-26] MEDS: ATORVASTATIN 10 MG TAB PO SCH (23:29)
[2016-12-27] VITALS (25 sets, daily range): BP systolic 124–153; BP diastolic 68–86; PULSE 68–88; RESP 16–18; TEMP 97.8–98.4; O2SAT 95–100
[2016-12-27 05:43] LABS: APTT (PATIENT) 41.5 SEC (24.3-30.1)
[2016-12-27 05:55] LABS: HDL CHOLESTEROL 70.3 MG/DL (40.0-60.0); LDL CHOLESTEROL 139 MG/DL (0-99)
[2016-12-27] MEDS: LEVOTHYROXINE SODIUM 50 MCG TAB PO SCH (06:31)
[2016-12-27] MEDS: INSULIN ASPART SUPPLEMENTAL SCALE SQ SCH ×4 (06:34→20:46)
[2016-12-27] MEDS: HYDROCHLOROTHIAZIDE 25 MG TAB PO SCH (08:32)
[2016-12-27] MEDS: LOSARTAN 50 MG TAB PO SCH (08:34)
[2016-12-27] MEDS: DIVALPROEX SODIUM E.R. 250 MG TAB PO SCH (08:34)
[2016-12-27] MEDS: CHOLECALCIFEROL (VIT D3) 1000 UNIT TAB PO SCH (08:34)
[2016-12-27] MEDS: METOPROLOL TARTRATE 25 MG TAB PO SCH ×2 (08:34→20:41)
[2016-12-27] MEDS: FAMOTIDINE 20 MG TAB PO SCH ×2 (08:34→20:40)
[2016-12-27] MEDS: CLOPIDOGREL 75 MG TAB PO SCH (08:34)
[2016-12-27] MEDS: INSULIN DETEMIR 100 UNITS/ML VIAL SQ SCH (08:42)
[2016-12-27] MEDS ORDERED: CLOPIDOGREL 75 MG TAB PO SCH (09:00)
[2016-12-27] MEDS ORDERED: ASPIRIN EC 81 MG TABEC PO SCH (09:00)
--- NOTE | 2016-12-27 10:13 | EKG ---
Date Performed: 12/26/2016 Time Performed: 17:37:48 PTAGE: 86 years EKG: Sinus rhythm WITH FIRST DEGREE AV BLOCK MODERATE INTRAVENTRICULAR CONDUCTION DELAY ST DEVIATION AND MODERATE T-WA VE ABNORMALITY, CONSIDER LATERAL ISCHEMIA ST DEVIATION AND MODERATE T-WAVE ABNORMALITY, CONSIDER INFE RIOR ISCHEMIA ABNORMAL ECG NO CHANGE FROM PRIOR TRACING PREVIOUS TRACING : 12/26/2016 10.08 DOCTOR: Rohit Sharif Interpretating Date/Time 12/27/2016 10:12:45
--- NOTE | 2016-12-27 10:14 | EKG ---
Date Performed: 12/26/2016 Time Performed: 10:08:28 PTAGE: 86 years EKG: Sinus rhythm WITH FIRST DEGREE AV BLOCK LEFT VENTRICULAR HYPERTROPHY AND ST-T CHANGE ABNORMAL ECG NO CHANGE FROM PREVIOUS PREVIOUS TRACING : 11/29/2016 15.53 DOCTOR: Rohit Sharif Interpretating Date/Time 12/27/2016 10:13:58
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
[2016-12-27 13:02] LABS: APTT (PATIENT) 46.4 SEC (24.3-30.1)
--- NOTE | 2016-12-27 13:20 | EKG ---
Date Performed: 12/27/2016 Time Performed: 03:42:32 PTAGE: 86 years EKG: Sinus rhythm Extensive ST-T changes may be due to myocardial ischemia Abnormal ECG PREVIOUS TRACING : 12/26/2016 22.38 Compared to prior tracing no significant change. DOCTOR: James Bailey Interpretating Date/Time 12/27/2016 13:20:17
--- NOTE | 2016-12-27 13:20 | EKG ---
Date Performed: 12/26/2016 Time Performed: 22:38:00 PTAGE: 86 years EKG: Sinus rhythm Extensive ST-T changes may be due to myocardial ischemia Abnormal ECG PREVIOUS TRACING : 12/26/2016 17.37 Since prior tracing, previously seen ST changes are slightl y improved on current study. DOCTOR: James Bailey Interpretating Date/Time 12/27/2016 13:19:49
[2016-12-27] MEDS ORDERED: REGADENOSON INJ 0.4 MG/5 ML SYR ONE ×2 (13:42→13:43)
[2016-12-27] MEDS ORDERED: HYDR-3516 PO (14:59)
[2016-12-27] MEDS ORDERED: LIPI10TA PO (14:59)
[2016-12-27] MEDS ORDERED: METO25TA3 PO (14:59)
--- NOTE | 2016-12-27 15:30 | RADRPT ---
EXAM DATE/TIME: 12/27/2016 12:54 [facility] COMPARISON: MYOCARDIAL PERF PHARM SPECT, GATED W/EF, May 30, 2012, 14:36. INDICATIONS : Substernal chest pain with dyspnea. Coronary atherosclerosis. DOSE: 27.4 mCi Tc99m Myoview at stress. 8.6 mCi Tc99m Myoview at rest. 0.4 mg Lexiscan STRESS SYMPTOMS: Dyspnea, headache and tired feeling. EJECTION FRACTION: 32% MEDICAL HISTORY : Hypercholesterolemia. Stroke Hypertension. Asthma. SURGICAL HISTORY : Appendectomy. Hysterectomy. ENCOUNTER: Initial ACUITY: 1 day PAIN SCALE: 8/10 LOCATION: Substernal chest TECHNIQUE: The patient underwent pharmacologic stress with infusion of prescribed dose. Continuous ECG tracing was monitored during stress. Gated SPECT imaging was performed after stress and conventional SPECT i maging was performed at rest. The examination was performed on a SPECT/CT scanner, both attenuation and non-corrected datasets were reviewed. FINDINGS: DISTRIBUTION: The maximum perfused segment at stress is in the septal wall. PERFUSION STUDY: The pattern of perfusion at stress demonstrates decreased perfusion to the anterolateral wall which d emonstrates progressing reperfusion and similar finding is seen in the posterior basal wall. GATED STUDY: There is global hypokinesis. CONCLUSION: There is ischemia in the anterolateral and posterior basal wall reduction in ejection fraction. RISK CATEGORY: Intermediate (1-3% Annual Mortality Rate) Eliud Peguero MD on December 27, 2016 at 15:27 Board Certified Radiologist. This report was verified electronically.
--- NOTE | 2016-12-27 15:47 | HHI.PR ---
Subjective Remarks Follow-up for chest pain No chest pain overnight, not short of breath, complaining about the foot. No palpitations. Objective Vitals Vital Signs Date Time Temp Pulse Resp B/P Pulse Ox O2 Delivery O2 Flow Rate FiO2 12/27/16 15:40 98.1 73 18 147/79 96 12/27/16 15:39 81 12/27/16 12:06 68 12/27/16 11:08 84 12/27/16 11:00 97.8 71 18 131/68 95 12/27/16 10:03 78 12/27/16 09:07 99 2.00 12/27/16 09:00 72 12/27/16 08:00 71 12/27/16 07:17 76 12/27/16 07:00 98.0 76 18 124/86 95 12/27/16 04:00 97.9 77 16 153/85 100 12/27/16 02:00 68 12/27/16 01:00 68 12/27/16 00:00 71 12/26/16 23:26 98.0 67 18 125/70 100 12/26/16 23:00 72 12/26/16 22:00 68 12/26/16 21:00 68 12/26/16 20:12 99 Nasal Cannula 2.00 12/26/16 20:00 70 12/26/16 20:00 98.0 79 18 128/64 99 12/26/16 19:00 73 12/26/16 18:32 98.1 75 18 149/86 100 12/26/16 18:05 62 18 145/67 100 12/26/16 17:30 62 21 155/102 0 Nasal Cannula 2 12/26/16 16:30 62 23 144/64 100 Nasal Cannula 2 I/O 12/26/16 12/26/16 12/26/16 12/27/16 12/27/16 12/27/16 06:59 14:59 22:59 06:59 14:59 22:59 Intake Total 240 ml Output Total 500 ml Balance -260 ml Intake Oral 240 ml Output Urine Total 500 ml # Bowel Movements 0 Result Diagram: 12/26/16 2731 12/26/16 1410 Objective Remarks Not in distress, well-nourished, looks stated age PERRL, pink conjunctiva without injection, anicteric Nose without bleeding, airway patent, oropharynx clear Supple neck, no masses or thyromegaly. Normal rate and regular rhythm, no murmurs gallops or rubs appreciated. Positive for reproducible chest tenderness on deep palpation. Clear to auscultation and symmetric bilaterally, normal respiratory effort. Normal bowel sounds, soft, non-tender, nondistended, no guarding. Extremities without clubbing, cyanosis, or edema. No rash of generalized distribution. Skin is warm and dry. AAO x3, no cranial nerve deficits, moves all 4 extremities, no focal neurologic deficits A/P Problem List: (1) History of TIA (transient ischemic attack) ICD Code: Z86.73 Status: Chronic (2) Elevated troponin ICD Code: R74.8 Status: Acute (3) Hypertension ICD Code: I10 Status: Chronic (4) Hypothyroidism ICD Code: E03.9 Status: Chronic (5) Diabetes mellitus ICD Code: E11.9 Status: Chronic Assessment and Plan This is an 86-year-old female with history of diabetes mellitus, hypertension and TIA presenting with chest pain Chest pain with Mildly elevated troponin - -troponin maxed at 0.10, follow-up echocardiogram. EKG showed sinus rhythm, first-degree AV block, LVH. Cardiology following, requested a nuclear stress test. Continue Plavix. [place] for pain. Nuclear stress test positive for possible ischemia, cardiology informed, it showed ischemia in the anterolateral and posterior basal wall with reduced ejection fraction. Follow-up echocardiogram. LDL elevated, start statins. Diabetes mellitus- continue Lantus per home dose of sliding scale insulin, hemoglobin A1c is pending Hypertension-restart diuretics and losartan, Vasotec as needed. Chronic kidney disease-Baseline creatinine around 1.2, presently at baseline, monitor. Asthma-not in exacerbation, DuoNeb's as needed Hypothyroidism-restart Synthroid Heparin for DVT prophylaxis Code Status Full code Krystal Davis MD Dec 27, 2016 15:47
[2016-12-27] MEDS: ATORVASTATIN 10 MG TAB PO SCH (20:40)
[2016-12-27] MEDS: SODIUM CHLORIDE 0.9% FLUSH 10 ML FLUSH IVF PRN (20:42)
[2016-12-27] MEDS ORDERED: PRAVASTATIN SOD 40 MG TAB PO SCH (21:00)
[2016-12-27] MEDS: ACETAMINOPHEN/HYDROcodone 325 MG/5 MG TAB PO PRN (22:01)
[2016-12-28] VITALS (18 sets, daily range): BP systolic 142–149; BP diastolic 78–91; PULSE 64–91; RESP 16–18; TEMP 97.7–97.8; O2SAT 97–100
[2016-12-28] MEDS: ACETAMINOPHEN/HYDROcodone 325 MG/5 MG TAB PO PRN (04:50)
[2016-12-28] MEDS: LEVOTHYROXINE SODIUM 50 MCG TAB PO SCH (06:07)
[2016-12-28] MEDS: INSULIN ASPART SUPPLEMENTAL SCALE SQ SCH ×3 (06:08→16:00)
[2016-12-28] MEDS: HYDROCHLOROTHIAZIDE 25 MG TAB PO SCH (09:00)
[2016-12-28] MEDS: FAMOTIDINE 20 MG TAB PO SCH (09:00)
[2016-12-28] MEDS: DIVALPROEX SODIUM E.R. 250 MG TAB PO SCH (09:00)
[2016-12-28] MEDS: LOSARTAN 50 MG TAB PO SCH (09:00)
[2016-12-28] MEDS: CHOLECALCIFEROL (VIT D3) 1000 UNIT TAB PO SCH (09:00)
[2016-12-28] MEDS: CLOPIDOGREL 75 MG TAB PO SCH (09:00)
[2016-12-28] MEDS: METOPROLOL TARTRATE 25 MG TAB PO SCH (09:01)
[2016-12-28] MEDS: INSULIN DETEMIR 100 UNITS/ML VIAL SQ SCH (09:08)
--- NOTE | 2016-12-28 10:04 | HHI.PR ---
Subjective Remarks Follow for chest pain No chest pain overnight, no shortness of breath. Did not sleep well. No nausea or vomiting. Discussed with cardiology. Patient's aspirin allergy is more of an upset stomach, which is an adverse reaction. Objective Vitals Vital Signs Date Time Temp Pulse Resp B/P Pulse Ox O2 Delivery O2 Flow Rate FiO2 12/28/16 09:12 91 12/28/16 08:28 97.8 70 18 142/78 100 12/28/16 08:28 70 12/28/16 06:00 66 12/28/16 05:00 76 12/28/16 04:56 77 16 146/91 97 12/28/16 04:00 70 12/28/16 03:00 79 12/28/16 02:00 68 12/28/16 01:00 64 12/28/16 00:00 70 12/27/16 23:40 88 18 148/82 100 12/27/16 23:00 68 12/27/16 22:00 72 12/27/16 21:00 76 12/27/16 20:00 80 12/27/16 19:30 98.4 81 16 145/72 99 12/27/16 19:03 Nasal Cannula 2.00 12/27/16 19:00 76 12/27/16 18:04 80 12/27/16 17:03 69 12/27/16 16:01 76 12/27/16 15:40 98.1 73 18 147/79 96 12/27/16 15:39 81 12/27/16 12:06 68 12/27/16 11:08 84 12/27/16 11:00 97.8 71 18 131/68 95 12/27/16 10:03 78 I/O 12/27/16 12/27/16 12/27/16 12/28/16 12/28/16 12/28/16 07:00 15:00 23:00 07:00 15:00 23:00 Intake Total 240 ml 881 ml 500 ml Output Total 500 ml 680 ml 550 ml Balance -260 ml 201 ml -50 ml Intake Oral 240 ml 780 ml 500 ml IV Total 101 ml Output Urine Total 500 ml 680 ml 550 ml # Bowel Movements 0 0 0 Result Diagram: 12/26/16 2151 12/26/16 1410 Objective Remarks Not in distress, well-nourished, looks stated age PERRL, pink conjunctiva without injection, anicteric Nose without bleeding, airway patent, oropharynx clear Supple neck, no masses or thyromegaly. Normal rate and regular rhythm, no murmurs gallops or rubs appreciated. Positive for reproducible chest tenderness on deep palpation. Clear to auscultation and symmetric bilaterally, normal respiratory effort. Normal bowel sounds, soft, non-tender, nondistended, no guarding. Extremities without clubbing, cyanosis, or edema. No rash of generalized distribution. Skin is warm and dry. AAO x3, no cranial nerve deficits, moves all 4 extremities, no focal neurologic deficits A/P Problem List: (1) History of TIA (transient ischemic attack) ICD Code: Z86.73 Status: Chronic (2) Elevated troponin ICD Code: R74.8 Status: Acute (3) Hypertension ICD Code: I10 Status: Chronic (4) Hypothyroidism ICD Code: E03.9 Status: Chronic (5) Diabetes mellitus ICD Code: E11.9 Status: Chronic Assessment and Plan This is an 86-year-old female with history of diabetes mellitus, hypertension and TIA presenting with chest pain Chest pain with Mildly elevated troponin - -troponin maxed at 0.10, follow-up echocardiogram. EKG showed sinus rhythm, first-degree AV block, LVH. Continue Plavix. [place] for pain. Nuclear stress test positive for possible ischemia, cardiology informed, it showed ischemia in the anterolateral and posterior basal wall with reduced ejection fraction. Follow-up echocardiogram. LDL elevated, start statins. Allegedly had an allergy to aspirin, after further probing, patient had GI upset with aspirin. We'll challenge with aspirin today, discussed with Dr. Cottrell, agree with plan, if no reaction, he will do cardiac catheterization today. If negative, can possibly go home. Diabetes mellitus- continue Lantus per home dose of sliding scale insulin, hemoglobin A1c is pending Hypertension-restart diuretics and losartan, Vasotec as needed. Chronic kidney disease-Baseline creatinine around 1.2, presently at baseline, monitor. Asthma-not in exacerbation, DuoNeb's as needed Hypothyroidism-restart Synthroid Insomnia-Restoril Heparin for DVT prophylaxis Code Status Full code Discharge Planning Discharge today or tomorrow depending on [employer]ENIOR OPERATIONS ANALYST Results. Krystal Davis MD Dec 28, 2016 10:04
[2016-12-28] MEDS ORDERED: TEMAZEPAM 7.5 MG CAP PO PRN (10:15)
[2016-12-28] MEDS ORDERED: ASPIRIN 81 MG CHEW TAB PO ONE (10:45)
--- NOTE | 2016-12-28 10:49 | PD.CARD.PN ---
Subjective Subjective Remarks No overnight events Complaints of mild chest pains MPI results noted Objective Medications Current Medications Medications (Trade) Dose Ordered Sig/Marilyn Route Start Time Stop Time Status Last Admin (NS Flush) 2 ml UNSCH PRN IVF 12/26/16 10:30 12/27/16 20:42 (Restoril) 7.5 mg HS PRN PO 12/26/16 16:30 (D50w (Vial) Inj) 50 ml UNSCH PRN IV 12/26/16 16:45 (Glucagon Inj) 1 mg UNSCH PRN IM 12/26/16 16:45 (Tylenol) 650 mg Q6H PRN PO 12/26/16 16:45 ([place] 5-325 Mg) 1 tab Q4H PRN PO 12/26/16 16:45 12/28/16 04:50 ([place] 7.5-325 Mg) 1 tab Q4H PRN PO 12/26/16 16:45 (Narcan Inj) 0.4 mg UNSCH PRN IV 12/26/16 16:45 (Vitamin D3) 1,000 units DAILY PO 12/27/16 09:00 12/28/16 09:00 (Depakote Er) 250 mg DAILY PO 12/27/16 09:00 12/28/16 09:00 (Hydrodiuril) 25 mg DAILY PO 12/27/16 09:00 12/28/16 09:00 (Levemir Inj) 11 units DAILY SQ 12/27/16 09:00 12/28/16 09:08 (Synthroid) 50 mcg DAILY@0600 PO 12/27/16 06:00 12/28/16 06:07 (Cozaar) 100 mg DAILY PO 12/27/16 09:00 12/28/16 09:00 (Pepcid) 10 mg BID PO 12/27/16 09:00 12/28/16 09:00 (Vasotec Inj) 1.25 mg Q6H PRN IV PUSH 12/26/16 16:45 (Plavix) 75 mg DAILY PO 12/26/16 18:00 12/28/16 09:00 (Nitrostat Sl) 0.4 mg Q5M PRN SL 12/26/16 20:00 (Lopressor) 12.5 mg BID PO 12/26/16 21:00 12/28/16 09:01 (Lipitor) 10 mg HS PO 12/26/16 21:00 12/27/16 20:40 (Pill Splitter) 1 ea UNSCH PRN OTHER 12/26/16 20:45 (Pravachol) 40 mg HS PO 12/27/16 21:00 12/27/16 20:40 (Restoril) 7.5 mg HS PRN PO 12/28/16 10:15 (Aspirin Chew) 81 mg ONCE ONCE PO 12/28/16 10:45 12/28/16 10:46 12/28/16 10:45 Vital Signs / I&O Vital Signs Date Time Temp Pulse Resp B/P Pulse Ox O2 Delivery O2 Flow Rate FiO2 12/28/16 10:10 79 12/28/16 09:12 91 12/28/16 08:28 97.8 70 18 142/78 100 12/28/16 08:28 70 12/28/16 06:00 66 12/28/16 05:00 76 12/28/16 04:56 77 16 146/91 97 12/28/16 04:00 70 12/28/16 03:00 79 12/28/16 02:00 68 12/28/16 01:00 64 12/28/16 00:00 70 12/27/16 23:40 88 18 148/82 100 12/27/16 23:00 68 12/27/16 22:00 72 12/27/16 21:00 76 12/27/16 20:00 80 12/27/16 19:30 98.4 81 16 145/72 99 12/27/16 19:03 Nasal Cannula 2.00 12/27/16 19:00 76 12/27/16 18:04 80 12/27/16 17:03 69 12/27/16 16:01 76 12/27/16 15:40 98.1 73 18 147/79 96 12/27/16 15:39 81 12/27/16 12:06 68 12/27/16 11:08 84 12/27/16 11:00 97.8 71 18 131/68 95 I/O 12/27/16 12/27/16 12/27/16 12/28/16 12/28/16 12/28/16 06:59 14:59 22:59 06:59 14:59 22:59 Intake Total 240 ml 881 ml 500 ml Output Total 500 ml 680 ml 550 ml Balance -260 ml 201 ml -50 ml Intake Oral 240 ml 780 ml 500 ml IV Total 101 ml Output Urine Total 500 ml 680 ml 550 ml # Bowel Movements 0 0 0 Physical Exam GENERAL: Well-nourished, well-developed patient. SKIN: Warm and dry. HEAD: Normocephalic. EYES: No scleral icterus. No injection or drainage. NECK: Supple, trachea midline. No JVD or lymphadenopathy. CARDIOVASCULAR: Regular rate and rhythm without murmurs, gallops, or rubs. RESPIRATORY: Breath sounds equal bilaterally. No accessory muscle use. GASTROINTESTINAL: Abdomen soft, non-tender, nondistended. EXTREMITIES: No cyanosis, or edema. NEUROLOGICAL: Awake, alert, and oriented x 3. Non-focal. Laboratory Laboratory Tests Test 12/27/16 12:04 Activated Partial 46.4 SEC Thromboplast Time Imaging Last Impressions Myocardial Perfusion Scan Nuc Med 12/27/16 0000 Signed Impressions: Service Date/Time: Tuesday, December 27, 2016 12:54 - CONCLUSION: There is ischemia in the anterolateral and posterior basal wall reduction in ejection fraction. RISK CATEGORY: Intermediate (1-3%% Annual Mortality Rate) Eliud Peguero MD Chest X-Ray 12/26/16 1028 Signed Impressions: Service Date/Time: Monday, December 26, 2016 10:28 - CONCLUSION: No appreciable change. Eliud Peguero MD Assessment and Plan Problem List: (1) Elevated troponin Assessment and Plan: +MPI ASA allergy not severe. Reported as GI upset. Keep NPO for C +/- PCI today (2) Chest wall pain (3) Diabetes mellitus (4) Dyslipidemia (5) Hypertension (6) History of TIA (transient ischemic attack) Rafal Monahan MD Dec 28, 2016 10:49
[2016-12-28 12:45] LABS: HEMOGLOBIN A1a 1.1 %; HEMOGLOBIN A1b 0.8 %; HEMOGLOBIN Ao 81.2 %; HEMOGLOBIN F 1.3 %; HEMOGLOBIN LA1C 2.3 %; HEMOGLOBIN P3 6.2 %
[2016-12-28] MEDS ORDERED: IOHEXOL 350 MG/ML 100 ML BTL (for Cath Lab) OTHER ONE (13:32)
[2016-12-28] MEDS ORDERED: MIDAZOLAM HCL 2 MG/2 ML VIAL ONE (13:44)
[2016-12-28] MEDS ORDERED: HEPARIN-NS/PF INJ 500 ML ONE (13:44)
[2016-12-28 13:57] LABS: POTASSIUM 4.3 MEQ/L (3.5-5.1)
--- NOTE | 2016-12-28 14:22 | CATHPROC ---
[employer] HIS Report Study Information Study Number Admission Scheduled Start Study Start [id number] Dec 26 2016 3:30PM 12/28/2016 Dec 28 2016 1:43PM [facility] Cardiac Catheterization Admit Source Facility Department Emergency department [facility] - Person Investigator Physician and Clinical Staff Initial MD Monahan, Rafal Teaching Young Elicia Mata RN Recorder Collette Hernández,ORTHO TECH TECH2 Scrub Mansi Early,RT(R) Procedures Performed Procedure Location (Site) Vessel Name Coronary Angiograms LCA Left Coronary Coronary Angiograms RCA Right Coronary Equipment Time Pipe Organ Tuner And Repairer Description Size Mfg Part Number Used/Scraped TRANSDUCER, TRUWAVE [id number] 13:55 DIALLO MATA * Used W/STOCKCOCK *[id number] 14:07 Ceannate VASCADE, FR5 CLOSURE SYSTEM FR 5 Used *[id number]- INTRODUCER SET, 13:55 [employer] FR 5 SC-NT-U-SST Used MICROPUNCTURE, STIFFENED *[id number] 534-520T *[id number] 534-521T *[id number] 13:55 Zebit INDUSTRIES PACK, CCL CUSTOM * Used *[id number] 13:55 [employer] MEDICAL WIRE, 3MMJ .035 180CM 180CM Used *[id number] 13:55 NAMIC MANIFOLD, 4 PORT * Used *[id number] 13:55 NYCOMED OMNIPAQUE, 350 MG, 150ML 150ML [id number] Used [id number] 13:55 [place],WARM AIR CCL * Used *[id number] 13:55 TERUMO MEDICAL SHEATH, FR5 TERUMO (10CM) FR 5 [id number] Used History: Allergies Allergy Reaction Flexeril DIZZY Aspirin History: Risk Factors Family History of Hypertension Dyslipidemia Previous PR Previous Heart Failure Premature CAD Yes Yes No No No Prior Valve Prior PCI Prior CABG Surgery No No No Cerebrovascular Peripheral Artery Chronic Lung On Dialysis Diabetes Diabetes Therapy Disease Disease Disease No Yes No Yes Yes Insulin History: Symptoms/Diagnosis Selection Items Chest pain History: Stress Tests Stress or Imaging Studies Performed Yes Standard Exercise Stress Test No Stress Echo No Stress Test SPECT Stress Test SPECT Result Stress Test SPECT Ischemia Risk/Extent Yes Positive Intermediate Stress Test CMR No Cardiac CTA Coronary Calcium Score No No History: Other Current Smoker Method Quit No Cigarettes 6 Years Ago Labs Hgb (g/dl) Hct (%) WBC (l/cumm) Platelets (thousands) 11.60-17.00 35.00-51.00 4.00-11.00 150.00-450.00 10.4 31.4 6.8 179 Glucose (mg/dl) BUN (mg/dl) Creatinine (mg/dl) BUN:Creatinine (1:x) 74.00-106.00 7.00-18.00 0.50-1.30 10.00-20.00 117 26 1.2 21.7 Na (meq/l) K (meq/l) 136.00-145.00 3.50-5.10 141 4.2 Troponin I (ng/ml) CPK (u/l) CPK-MB (ng/ML) 0.02-0.05 26.00-308.00 0.50-3.60 0.06 149 3.3 Medication Medication Total Dose (Bolus/Oral) Medication Total Dosage/Unit 1% XYLOCAINE 20 mL FENTANYL 50 mcg VERSED 2 mg Medications (Bolus/Oral) Medication Time Given Dosage/Unit Administered By Reason VERSED 12/28/2016 1:50:29 PM 2 mg Elicia Mata 2 mg VERSED given in lab by Elicia Mata RN in Left Antecubital via Peripheral IV. Ordered by Rafal Hogan. FENTANYL 12/28/2016 1:51:20 PM 50 mcg Elicia Mtaa 50 mcg FENTANYL given in lab by Elicia Mata RN in Left Antecubital via Peripheral IV. Ordered by Rafal Monahan. 1% XYLOCAINE 12/28/2016 1:56:10 PM 20 mL Rafal Monahan 20 mL 1% XYLOCAINE given in lab by Rafal Monahan in Right Groin via Subcutaneous. Medication (Drip) Medication Time Given Dosage/Unit Concentration/Unit Diluent (ml) Solution IV Solutions 12/28/2016 1:54:30 PM 0 mL (IV) 500 NaCl .9 Patient arrived on IV Solutions in Left Antecubital via Peripheral IV. Pump/Drip Flow = 20 ml/hr usin g NaCl .9. IV Solutions 12/28/2016 2:15:52 PM 0 mL (IV) 500 NaCl .9 IV Solutions given in lab by Elicia Mata, RN in Left Antecubital via Peripheral IV. Pump/Drip F low = 125 ml/hr using NaCl .9. Ordered by Rafal Lanza. for 2hrs Initial Case Assessment Cardiovascular HR Rhythm NIBP 85 sr 169/95 Neurological State Oriented to time-place- Alert Moves all extremities person Respiration - General Respiration Rate SpO2 (%) (B/min) 20 98 Final Case Assessment Cardiovascular HR Rhythm NIBP Chest Pain 75 sr 147/84 0 Circulatory - Right Pulses Dorsalis Pedis Femoral 2 2 Scale (0,1,2,3,4,d) Circulatory - Left Pulses Dorsalis Pedis Femoral 2 2 Scale (0,1,2,3,4,d) Neurological State Oriented to time-place- Alert Moves all extremities person Respiration - General Respiration Rate SpO2 (%) (B/min) 20 97 Chronological Log Time Study Chronological Log 13:42:51 Patient arrived via Bed. 13:42:52 Patient Name, D.O.B, / Armband Verified By R.N. 13:45:48 Pre-op and post- op instructions given; patient acknowledges understanding of instructions. Vitals capture started with the following parameters, Patient=Adult, Interval=5 min, Initial Pr kusnym=528 mmHg, 13:46:05 Deflation Rate=5 mmHg 13:47:13 HR=85 bpm, UKWK=899/95 mmhg, SpO2=98.0 %, Resp=20 B/min Assessment: Initial Case, HR=85 BPM, Rhythm=sr, KQTA=787/95 mmhg 13:47:53 Neurological: State=Alert, Ox3, JACINTO Respiration: Resp=20 B/min, SpO2=98 % 2 mg VERSED given in lab by Elicia Mata, RN in Left Antecubital via Peripheral IV. Ordere d by Hero, 13:50:29 Rafal. 13:50:35 Bilateral groins prepped with 2% chlorhexidine, and drapd after a 3 min. waiting time. 13:50:47 Consent signed by the physician and the patient and verified by the Person Investigator staff. 50 mcg FENTANYL given in lab by Elicia Mata, CHAPITO in Left Antecubital via Peripheral IV. Or dered by Hero, 13:51:20 Rafal. 13:51:47 HR=86 bpm, NICS=152/86 mmhg, SpO2=96.0 %, Resp=21 B/min 13:52:49 Verbal Stimulation=2 Physical Stimulation=2 Airway=2 Respiration=2 TOTAL=8. (0=absent, 1=li mited, 2=present) 13:53:39 Pressure channel 1 zeroed. 13:54:24 Patient has been NPO for More than 6Hrs. 13:54:24 Skin Breakdown-none 13:54:26 Lelyn Prominences Protected 13:54:29 A # 20 IV was noted in the Antecubital (left). Grade = patent 13:54:30 Patient arrived on IV Solutions in Left Antecubital via Peripheral IV. Pump/Drip Flow = 20 ml/hr using NaCl .9. 13:54:31 History and physical on the chart or being dictated. 13:54:39 MD arrived. Time Out. Correct patient, correct procedure,correct physician, ,power injector loaded or not l oaded with contrast with 13:54:42 surgical team present. Time Out Concurred by MD and individual staff and LEAD SEWAGE PLANT OPERATOR in procedure 13:55:31 Reference ECG taken 13:56:09 Case Start 13:56:10 20 mL 1% XYLOCAINE given in lab by Rafal Monahan in Right Groin via Subcutaneous. 13:56:48 HR=69 bpm, POOE=249/76 mmhg, SpO2=98.0 %, Resp=13 B/min 13:57:51 Access site was Right Femoral Artery. A INTRODUCER SET, MICROPUNCTURE, STIFFENED FR 5 was advanced into the Fem Art (right) using the 13:58:01 Percutaneous technique. A SHEATH, FR5 TERUMO (10CM) FR 5 was exchanged in the Fem Art (right). This was necessary in or briana to 13:58:06 accomodate a larger catheter. 13:58:14 An injection in the Fem Art (right) was made through the SHEATH, FR5 TERUMO (10CM) FR 5. A JR 4.0 INFINITI CATHETER FR 5 was advanced over a wire. OMNIPAQUE, 350 MG, 150ML 150ML was us ed for 13:58:32 injections. Recorded Pressure: LV, HR=71, Condition=Condition 1 13:59:01 (Left Ventricle) LV 150/17/25 Recorded Pressure: LV, Ao, HR=71, Condition=Condition 1 13:59:15 (Left Ventricle) LV 147/14/21, (Aorta) Ao 146/70/102 14:00:50 The RCA was injected and visualized at various angles. OMNIPAQUE, 350 MG, 150ML 150ML used . 14:01:43 HR=63 bpm, LRZC=664/61 mmhg, HxS6=982.0 %, Resp=25 B/min 14:03:00 Catheter was removed A JL 4.0 INFINITI CATHETER FR 5 was advanced over a wire. OMNIPAQUE, 350 MG, 150ML 150ML was us ed for 14:03:01 injections. 14:05:43 The LCA was injected and visualized at various angles. OMNIPAQUE, 350 MG, 150ML 150ML used . 14:05:57 Catheter was removed 14:06:06 VASCADE, FR5 CLOSURE SYSTEM FR 5 placement in the Fem Art (right) 14:06:21 No case complications noted. 14:06:22 Cine recording checked. 14:07:19 HR=80 bpm, GJOC=182/77 mmhg, GuA5=857.0 %, Resp=20 B/min, Pain=0, Parks=2 14:09:14 Case End 14:11:20 Sterile dressing applied to site 14:11:43 HR=80 bpm, IXRZ=099/84 mmhg, SpO2=98.0 %, Resp=27 B/min, Pain=0, Parks=2 Assessment: Final Case, HR=75 BPM, Rhythm=sr, EZCO=378/84 mmhg, Chest Pain=0 Right Pulses: Chi Ped=2, Femoral=2 14:14:07 Left Pulses: Chi Ped=2, Femoral=2 Neurological: State=Alert, Ox3, JACINTO Respiration: Resp=20 B/min, SpO2=97 % 14:14:53 Patient moved to bed IV Solutions given in lab by Elicia Mata RN in Left Antecubital via Peripheral IV. Pump /Drip Flow = 125 ml/hr 14:15:52 using NaCl .9. Ordered by Rafal Monahan. for 2hrs 14:19:41 Patient transported to [facility] End Study - Contrast Media Used In Study Contrast Total Opened (mL) Total Used (mL) Total Wasted (mL) Omnipaque 25 25 0 End Study - Maximum Contrast Load Max Contrast Load (mL) 391.7 End Study - Radiation Exposure Fluoro Time (minutes) 2.8 End Study - Sheaths Sheaths Pulled By Sheath Hold Time (min) Rafal Monahan End Study - Patient Disposition Complications Transferred To Telemetry Bed
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
--- NOTE | 2016-12-28 16:13 | MA ---
cc: JESUS MANUEL SHAW DATE: 12/28/2016. PROCEDURE PERFORMED: 1. Left heart catheterization. 2. Selective right and left coronary angiography. 3. Left ventricle hemodynamics. 4. Selective Right common femoral artery angiography. INDICATIONS FOR THE PROCEDURE: [id number]-vbcopxahp AR / positive stress test, intermediate risk. DESCRIPTION OF THE PROCEDURE IN DETAIL: Consent signed. The patient was brought into the cardiac skill labor in fasting state. The right groin was prepped and draped in a sterile fashion using 1% lidocaine for local anesthesia and a micropuncture kit. A 5-Mohawk sheath was inserted in the right common femoral artery. The right common femoral artery angiography was performed to confirm position of the sheath. Then selective right and left coronary angiography was performed with a JR-4 and JL-4 diagnostic catheters. Angiography was taken in multiple views. Then the JR-4 was introduced over the ventricle over a wire. This was followed by pressure recordings and pullback. A left ventriculogram was not performed due to the patient's chronic kidney disease. The patient tolerated the procedure well without complications. Estimated blood loss less than 30 mL. Total contrast 25 mL. The right side access was closed with a basket closing device. RESULTS: 1. LEFT VENTRICLE: The left ventricular pressure was 147/40 with an left ventricular end diastolic pressure of 21. The aortic pressure was 146/70 with a mean of 102. There was no gradient upon pullback from the left ventricle to the aorta. ANGIOGRAPHIC RESULTS: 1. Right coronary artery: The right coronary artery is a dominant vessel giving off the posterior descending artery. It has an ostial calcification and obstruction of about 40%. Also in its mid-segment, it has a 10% lesion. On this study, there is nonobstructive coronary artery disease. The posterior descending artery and the posterolateral branches are patent with JU III flow and they are tortuous. 2. Left main: Patient with JU III flow. Nonobstructive coronary artery disease. 3. Left anterior descending. The left anterior descending is a transapical vessel giving off three diagonal branches, all of which are patent and small. The left anterior descending by itself has minimal luminal irregularities and mild calcification, however, no significant obstructive lesions. 4. Left circumflex: The left circumflex artery is tortuous in its proximal segment. It gives off two obtuse marginal branches which are tortuous as well and patent at that proximal segment and then there is a small segment of the left circumflex which is in the AV groove which is also patent with nonobstructive coronary artery disease and JU III flow. CONCLUSIONS: 1. Nonobstructive coronary artery disease. 2. Elevated left ventricular end diastolic pressure. RECOMMENDATIONS: 1. The patient will go back to the [facility] for post catheterization care. 2. She will need aggressive medical management for coronary artery disease. 3. She has an echocardiogram that is pending to assess left ventricular systolic function. MD DEMARCO Vail/PATRICIA /2:20 PM /4:10 PM SRINIVAS
--- NOTE | 2016-12-28 19:18 | ECHRPT ---
Indication: CHEST PAIN CONCLUSIONS Mildly dilated left ventricle. Mild concentric left ventricular hypertrophy. The left ventricular systolic function is zcuffzbs-py-rnoeeaq reduced with an estimated ejection fra ction in the range of 35-40%. There is global left ventricular dysfunction. Aortic valve sclerosis is present without stenosis. Trace aortic valve regurgitation. Moderate mitral valve regurgitation. Moderate mitral annular calcification. There is estimated mild pulmonary hypertension present (range 40-50 mmHg). There is mild tricuspid valve regurgitation. BP: 124 / 86 HR: 71 Rhythm: Sinus MEASUREMENTS (Male / Female) Normal Values Technical Quality:Fair 2D ECHO LV Diastolic Diameter PLAX 5.5 cm 4.2 - 5.9 / 3.9 - 5.3 cm LV Systolic Diameter PLAX 4.7 cm IVS Diastolic Thickness 1.3 cm 0.6 - 1.0 / 0.6 - 0.9 cm LVPW Diastolic Thickness 1.1 cm 0.6 - 1.0 / 0.6 - 0.9 cm LV Relative Wall Thickness 0.4 LVOT Diameter 1.6 cm Aortic Root Diameter 2.1 cm LA Systolic Diameter LX 3.3 cm 3.0 - 4.0 / 2.7 - 3.8 cm LA Volume Index 42.7 cm/m 16 - 28 cm/m M-MODE AV Cusp Separation MM 1.3 cm DOPPLER AV Peak Velocity 150.0 cm/s AV Peak Gradient 9.0 mmHg AV Mean Gradient 5.0 mmHg AV Velocity Time Integral 30.3 cm LVOT Peak Velocity 103.0 cm/s LVOT Peak Gradient 4.2 mmHg LVOT Velocity Time Integral 19.7 cm LVOT Cardiac Index 1347.3 cm/minm AV Area Cont Eq vti 1.3 cm AV Area Cont Eq pk 1.4 cm Mitral E Point Velocity 108.0 cm/s Mitral A Point Velocity 87.4 cm/s Mitral E to A Ratio 1.2 LV E' Lateral Velocity 5.1 cm/s Mitral E to LV E' Lateral Ratio 21.3 LV E' Septal Velocity 3.2 cm/s Mitral E to LV E' Septal Ratio 33.5 TR Peak Velocity 299.0 cm/s TR Peak Gradient 35.8 mmHg PV Peak Velocity 58.7 cm/s PV Peak Gradient 1.4 mmHg FINDINGS LEFT VENTRICLE Mildly dilated left ventricle. The left atrial size is mildly dilated. Mild concentric left ventricular hypertrophy. The left ventricular systolic function is ujxfpwvs-pg-ofbebdi reduced with an estimated ejection fra ction in the range of 35-40%. There is global left ventricular dysfunction. Left ventricular diastolic function parameters are normal. LEFT ATRIUM The left atrial size is mildly dilated. MITRAL VALVE Mild to moderate thickening of the mitral valve leaflets. Moderate mitral valve regurgitation. Moderate mitral annular calcification. AORTIC VALVE Aortic valve sclerosis is present without stenosis. Trace aortic valve regurgitation. TRICUSPID VALVE Structurally normal tricuspid valve. There is estimated mild pulmonary hypertension present (range 40-50 mmHg). There is mild tricuspid valve regurgitation. PULMONARY VALVE Trivial pulmonary valve regurgitation. James Bailey MD (Electronically Signed) Final Date:28 December 2016 19:17
== END 2016-12-28 19:27 | disposition home or self-care (01) | DRG 287 ==
LOC: NEPC 09:56 → NEDA 15:30 → HCIN 18:06
PROVIDERS: ADMIT Family Medicine; ATTEND Family Medicine
PROC: 4A023N7 Measurement of Cardiac Sampling and Pressure, Left Heart, Percutaneous Approach (ICD-10-PCS; principal; 2016-12-28)
PROC: B2111ZZ Fluoroscopy of Multiple Coronary Arteries using Low Osmolar Contrast (ICD-10-PCS; 2016-12-28)
PROC: B41F1ZZ Fluoroscopy of Right Lower Extremity Arteries using Low Osmolar Contrast (ICD-10-PCS; 2016-12-28)
DX: R07.89 Other chest pain (principal); E11.22 Type 2 diabetes mellitus with diabetic chronic kidney disease; I12.9 Hypertensive chronic kidney disease with stage 1 through stage 4 chronic kidney disease, or unspecified chronic kidney disease; N18.9 Chronic kidney disease, unspecified; Z86.73 Personal history of transient ischemic attack (TIA), and cerebral infarction without residual deficits; I44.0 Atrioventricular block, first degree; R74.8 Abnormal levels of other serum enzymes; E03.9 Hypothyroidism, unspecified; Z87.891 Personal history of nicotine dependence; J45.909 Unspecified asthma, uncomplicated; E78.5 Hyperlipidemia, unspecified; M19.90 Unspecified osteoarthritis, unspecified site; Z96.652 Presence of left artificial knee joint; Z79.4 Long term (current) use of insulin; I25.10 Atherosclerotic heart disease of native coronary artery without angina pectoris; E66.9 Obesity, unspecified; Z68.36 Body mass index [BMI] 36.0-36.9, adult; G47.00 Insomnia, unspecified
CPT/HCPCS: 71010; 78452; 80048; 80053; 80061; 82550; 82552; 82947; 82948; 83036; 83735; 84484; 85025; 85027; 85610; 85730; 93005; 93017; 93306; 93454; 96374; 96375; A9502; C1760; C1769; C1893; G0269; J1644; J1815; J2060; J2250; J2270; J2785; J3010; Q9967

== ENCOUNTER 2017-01-03 08:32 | Emergency (ER) | payer MEDICARE, OTHER ==
[~2017-01-03] VITALS: Ht 160 cm; Wt 90.0 kg
[~2017-01-03 08:32] MED LIST changes: +BACL10TA PO; +CLOP75TA PO; +HYDR-3516 PO; +HYDR25TA5 PO; +LIPI10TA PO; +LOSA100T PO; +METO25TA3 PO; -OMEP40CA2 PO; +RANI150T PO; -TRIA37.5 PO; +VITA100064 PO; -WALKER WHEELS/F1 MIS
[2017-01-03 08:35] VITALS: BP 197/75; PULSE 91; RESP 18; TEMP 98.2; O2SAT 98
[2017-01-03] MEDS ORDERED: LIPI80TA PO (08:45)
[2017-01-03 08:46] VITALS: BP 162/80; PULSE 84; RESP 16; O2SAT 100
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
[2017-01-03] MEDS ORDERED: MORPHINE SULFATE 4 MG/ML INJ IV PUSH ONE (09:30)
[2017-01-03 09:57] LABS: BASOPHIL % 0.6 % (0.0-2.0); EOSINOPHIL # 0.2 TH/MM3 (0-0.4); EOSINOPHIL % 2.9 % (0.0-4.0); HEMATOCRIT 34.7 % (35.0-46.0); HEMO FLAGS DIFF FINAL; LYMPH % 30.5 % (9.0-44.0); LYMPHOCYTE # 2.6 TH/MM3 (1.0-4.8); MEAN CELL VOLUME 87.5 FL (80.0-100.0); MEAN CORPUSCULAR HEMOGLOBIN 28.5 PG (27.0-34.0); MEAN CORPUSCULAR HGB CONC 32.5 % (32.0-36.0); MONO % 6.5 % (0.0-8.0); NEUT % 59.5 % (16.0-70.0); PLATELET COUNT 233 TH/MM3 (150-450); RED BLOOD COUNT 3.97 MIL/MM3 (4.00-5.30); RED CELL DISTRIBUTION WIDTH 13.4 % (11.6-17.2); WHITE BLOOD COUNT 8.5 TH/MM3 (4.0-11.0)
--- NOTE | 2017-01-03 10:08 | RADRPT ---
EXAM DATE/TIME: 01/03/2017 09:44 [facility] COMPARISON: CHEST SINGLE AP, December 26, 2016, 10:28. INDICATIONS : Chest pain and shortness of breath. MEDICAL HISTORY : Diabetes mellitus type II. SURGICAL HISTORY : None. ENCOUNTER: Initial ACUITY: 1 day PAIN SCORE: 10/10 LOCATION: Bilateral chest FINDINGS: The lungs are clear without infiltrate, nodule, or mass. There is no appreciable pleural effusion fo r technique. Heart and mediastinum are unremarkable. CONCLUSION: No acute cardiopulmonary disease. Eliud Peguero MD on January 03, 2017 at 10:05 Board Certified Radiologist. This report was verified electronically.
[2017-01-03 10:20] VITALS: RESP 16
[2017-01-03 10:40] LABS: BICARBONATE 21.5 MEQ/L (21.0-32.0)
[2017-01-03] MEDS ORDERED: NORC5TAB PO (10:58)
--- NOTE | 2017-01-05 13:50 | EKG ---
Date Performed: 01/03/2017 Time Performed: 08:46:47 PTAGE: 86 years EKG: Sinus rhythm LEFT VENTRICULAR HYPERTROPHY AND ST-T CHANGE Consider anterolateral ischemia ABNORMAL ECG PREVIOUS TRACING : 12/27/2016 03.42 DOCTOR: Lenin Bell Interpretating Date/Time 01/05/2017 13:50:18
== END 2017-01-03 11:48 | disposition home or self-care (01) ==
LOC: NEPC 08:32
DX: R07.89 Other chest pain (principal); R06.02 Shortness of breath
CPT/HCPCS: 71020; 80048; 84484; 85025; 93005; 96374; 99285; J2270

== ENCOUNTER 2017-01-23 08:59 | Observation (INO) | payer OTHER ==
[~2017-01-23] VITALS: Ht 160 cm; Wt 89.1 kg
[2017-01-23] VITALS (10 sets, daily range): BP systolic 134–194; BP diastolic 63–88; PULSE 65–90; RESP 16–24; TEMP 97.6–98.6; O2SAT 97–100
[~2017-01-23 08:59] MED LIST changes: -LIPI10TA PO; +LIPI80TA PO; +NORC5TAB PO
[2017-01-23 09:30] LABS: AUTOMATED NEUTROPHIL # 9.5 TH/MM3 (1.8-7.7); BASOPHIL # 0.1 TH/MM3 (0-0.2); BASOPHIL % 0.7 % (0.0-2.0); EOSINOPHIL % 0.2 % (0.0-4.0); HEMATOCRIT 33.6 % (35.0-46.0); HEMO FLAGS DIFF FINAL; LYMPH % 17.2 % (9.0-44.0); LYMPHOCYTE # 2.1 TH/MM3 (1.0-4.8); MEAN CELL VOLUME 85.9 FL (80.0-100.0); MEAN CORPUSCULAR HEMOGLOBIN 28.8 PG (27.0-34.0); MEAN CORPUSCULAR HGB CONC 33.5 % (32.0-36.0); MONO % 4.4 % (0.0-8.0); NEUT % 77.5 % (16.0-70.0); PLATELET COUNT 201 TH/MM3 (150-450); RED BLOOD COUNT 3.92 MIL/MM3 (4.00-5.30); RED CELL DISTRIBUTION WIDTH 13.4 % (11.6-17.2); WHITE BLOOD COUNT 12.2 TH/MM3 (4.0-11.0)
[2017-01-23] MEDS ORDERED: SODIUM CHLORIDE 0.9% FLUSH 10 ML FLUSH IVF PRN (09:30)
[2017-01-23 09:39] LABS: APTT (PATIENT) 23.3 SEC (24.3-30.1); PROTHROMBIN TIME - PATIENT 11.3 SEC (9.8-11.6)
[2017-01-23 09:49] LABS: ANION GAP 7 MEQ/L (5-15); AST (GOT) 23 U/L (15-37); BICARBONATE 25.6 MEQ/L (21.0-32.0); BLOOD UREA NITROGEN 36 MG/DL (7-18); CHLORIDE 103 MEQ/L (98-107); GLOMERULAR FILTRATION RATE 42 ML/MIN (>89); MAGNESIUM 1.7 MG/DL (1.5-2.5); POTASSIUM 4.2 MEQ/L (3.5-5.1); SODIUM (NA) 136 MEQ/L (136-145)
[2017-01-23 09:50] LABS: ALT (GPT) 38 U/L (10-53)
[2017-01-23 09:54] LABS: ALKALINE PHOSPHATASE 75 U/L (45-117); CREATINE KINASE 144 U/L (26-192); TOTAL BILIRUBIN ADULT 0.4 MG/DL (0.2-1.0)
--- NOTE | 2017-01-23 10:01 | RADRPT ---
EXAM DATE/TIME: 01/23/2017 09:38 [facility] COMPARISON: CHEST SINGLE AP, November 14, 2016, 3:12. CHEST SINGLE AP, July 21, 2013, 23:00. CHEST PA & LAT, Ju 2016, 16:08. CHEST PA & LAT, January 03, 2017, 9:44. CHEST SINGLE AP, December 26, 2016, 10:28. INDICATIONS : Chest and head pain. MEDICAL HISTORY : Asthma SURGICAL HISTORY : None. ENCOUNTER: Initial ACUITY: 1 day PAIN SCORE: 3/10 LOCATION: Bilateral chest FINDINGS: Portable AP view of the chest demonstrates a normal-sized cardiac silhouette with calcification of ao rta. Lungs are underinflated with interstitial prominence bilaterally that is stable. No effusion, ai rspace consolidation, or pneumothorax is identified. The bones and soft tissues demonstrate no acute finding. 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 CONCLUSION: 1. No acute cardiopulmonary abnormality is identified. There is stable interstitial prominence bilate rally. 2. Severe right glenohumeral joint osteoarthritis. Trenton Pastrana MD on January 23, 2017 at 9:59 Board Certified Radiologist. This report was verified electronically.
[2017-01-23 10:07] LABS: CKMB 4.2 NG/ML (0.5-3.6)
[2017-01-23] MEDS ORDERED: ASPIRIN 325 MG TAB PO ONE (10:15)
[2017-01-23] MEDS ORDERED: HYDR-3535 PO (10:41)
[2017-01-23] MEDS ORDERED: BECL80AE3 INH (10:41)
[2017-01-23] MEDS ORDERED: PRED5PAK PO (10:45)
[2017-01-23] MEDS ORDERED: CODCAP6 PO (10:46)
[2017-01-23] MEDS ORDERED: IOHEXOL 350 MG/ML 10 ML VIAL (for RAD DIAG) IV ONE (10:46)
--- NOTE | 2017-01-23 11:03 | RADRPT ---
EXAM DATE/TIME: 01/23/2017 10:44 [facility] COMPARISON: No previous studies available for comparison. INDICATIONS : Stabbing chest pain with shortness of breath IV CONTRAST: 74 cc Omnipaque 350 (iohexol) IV RADIATION DOSE: 23.26 CTDIvol (mGy) MEDICAL HISTORY : Hypertension. Diabetes mellitus type 2. Asthma SURGICAL HISTORY : Cholecystectomy. Hysterectomy.Appendectomy. ENCOUNTER: Initial ACUITY: 1 day PAIN SCALE: 6/10 LOCATION: chest TECHNIQUE: Volumetric scanning of the chest was performed using a pulmonary embolism protocol MIP images were re constructed. Using automated exposure control and adjustment of the mA and/or kV according to patien t size, radiation dose was kept as low as reasonably achievable to obtain optimal diagnostic quality images. DICOM format image data is available electronically for review and comparison. Follow-up recommendations for incidentally detected pulmonary nodules are based at a minimum on nodul e size and patient risk factors according to Fleischner Society Guidelines. FINDINGS: PULMONARY ARTERIES: No filling defects are seen in the pulmonary arteries through the segmental level. LUNGS: There is a slightly less than 1 cm nodular focus in the right middle lobe. 6 mm nodule in the lingula . There is mild occasional atelectasis. Mild interstitial thickening is mainly present centrally. PLEURAE: There is no pleural thickening or pleural effusion. MEDIASTINUM: There is good visualization of the great vessels of the middle mediastinum. No evidence of mediastin al or hilar adenopathy/mass. Heart is enlarged. MUSCULOSKELETAL: Within normal limits for patient age. MISCELLANEOUS: There is a 3.3 cm mass involving the left lobe of the thyroid gland. There are likely renal cysts in the upper abdomen. CONCLUSION: No evidence of pulmonary embolism. Mild central interstitial thickening. Patchy atelectasis. Nodular densities in the lung bases bilaterally need to be followed. Followup CT chest in 3 months following resolution of acute symptomatology would be initially suggested Trenton Blackwell MD on January 23, 2017 at 10:57 Board Certified Radiologist. This report was verified electronically.
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
--- NOTE | 2017-01-23 11:24 | RADRPT ---
EXAM DATE/TIME: 01/23/2017 10:38 [facility] COMPARISON: CT BRAIN W/O CONTRAST, November 29, 2016, 16:45. INDICATIONS : Headache RADIATION DOSE: 33.53 CTDIvol (mGy) MEDICAL HISTORY : Hypertension. Diabetes mellitus type 2. Asthma SURGICAL HISTORY : Appendectomy. Cholecystectomy.Hysterectomy. ENCOUNTER: Initial ACUITY: 1 day PAIN SCALE: 4/10 LOCATION: cranial TECHNIQUE: Multiple contiguous axial images were obtained of the head. Using automated exposure control and adj ustment of the mA and/or kV according to patient size, radiation dose was kept as low as reasonably a chievable to obtain optimal diagnostic quality images. DICOM format image data is available electro nically for review and comparison. FINDINGS: CEREBRUM: The ventricles are normal for age. No evidence of midline shift, mass lesion, hemorrhage or acute in farction. No extra-axial fluid collections are seen. POSTERIOR FOSSA: The cerebellum and brainstem are intact. The 4th ventricle is midline. The cerebellopontine angle i s unremarkable. EXTRACRANIAL: The visualized portion of the orbits is intact. SKULL: The calvaria is intact. No evidence of skull fracture. CONCLUSION: No acute disease. Stable appearance of the brain without evidence of acute infarct, hemorrhage, mass or edema. Slick Garcia MD on January 23, 2017 at 11:20 Board Certified Radiologist. This report was verified electronically.
[2017-01-23] MEDS ORDERED: MAGNESIUM HYDROXIDE SUSP 30 ML CUP PO PRN (11:30)
[2017-01-23] MEDS ORDERED: SODIUM CHLORIDE 0.9% FLUSH 10 ML FLUSH IV FLUSH PRN (11:30)
[2017-01-23] MEDS ORDERED: BISACODYL 10 MG SUPP RECTAL PRN (11:30)
[2017-01-23] MEDS ORDERED: LACTULOSE SYRUP 20 GM/30 ML CUP PO PRN (11:30)
[2017-01-23] MEDS ORDERED: ACETAMINOPHEN 325 MG TAB PO PRN (11:30)
[2017-01-23] MEDS ORDERED: ONDANSETRON HCL 4 MG/2 ML VIAL IVP PRN (11:30)
[2017-01-23] MEDS ORDERED: SENNOSIDES 8.6 MG TAB PO PRN (11:30)
[2017-01-23] MEDS ORDERED: NALOXONE HCL 0.4 MG/ML AMP IV PRN (11:30)
[2017-01-23] MEDS: HEPARIN SODIUM - SQ 10,000 UNITS/ML VIAL SQ SCH (11:57)
[2017-01-23] MEDS ORDERED: ISOSORBIDE MONONITRATE 30 MG TAB PO ONE (12:45)
[2017-01-23] MEDS ORDERED: NAPROXEN 500 MG TAB PO ONE (12:45)
[2017-01-23] MEDS ORDERED: PANTOPRAZOLE SOD 40 MG DELAYED RELEASE TAB PO ONE (12:45)
[2017-01-23] MEDS ORDERED: BACLOFEN 10 MG TAB PO PRN (13:00)
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
[2017-01-23] MEDS ORDERED: GLUCAGON 1 MG/ML VIAL OTHER PRN (14:00)
[2017-01-23] MEDS ORDERED: DEXTROSE 50% IN WATER 50 ML VIAL(D50) IV PRN (14:00)
[2017-01-23] MEDS: INSULIN ASPART SUPPLEMENTAL SCALE SQ SCH ×2 (16:00→23:07)
[2017-01-23] MEDS ORDERED: ACETAMINOPHEN/HYDROcodone 325 MG/5 MG TAB PO PRN (17:45)
[2017-01-23] MEDS ORDERED: ACETAMINOPHEN/HYDROcodone 325 MG/10 MG TAB PO PRN (17:45)
[2017-01-23] MEDS ORDERED: ATORVASTATIN 80 MG TAB PO SCH (21:00)
[2017-01-23] MEDS: BECLOMETHASONE DIPROPIONATE 80 MCG/ACT 8.7 GM INHALER INH SCH (23:04)
[2017-01-23] MEDS: NAPROXEN 500 MG TAB PO SCH (23:08)
[2017-01-23] MEDS: DOCUSATE SODIUM 50 MG/SENNA 8.6 MG TAB PO SCH (23:08)
[2017-01-23] MEDS: SODIUM CHLORIDE 0.9% FLUSH 10 ML FLUSH IV FLUSH SCH (23:09)
[2017-01-23] MEDS: CARVEDILOL 6.25 MG TAB PO SCH (23:09)
[2017-01-24] VITALS (7 sets, daily range): BP systolic 130–165; BP diastolic 60–78; PULSE 65–86; RESP 18–20; TEMP 97.9–98.2; O2SAT 95–99
[2017-01-24] MEDS: HEPARIN SODIUM - SQ 10,000 UNITS/ML VIAL SQ SCH (00:45)
[2017-01-24] MEDS: INSULIN ASPART SUPPLEMENTAL SCALE SQ SCH (06:19)
[2017-01-24] MEDS ORDERED: ISOSORBIDE MONONITRATE 30 MG TAB PO SCH (07:00)
[2017-01-24] MEDS ORDERED: CARV6.25 PO (08:50)
[2017-01-24] MEDS ORDERED: PANT40TA3 PO (08:50)
[2017-01-24] MEDS ORDERED: TORS5TAB2 PO (08:50)
[2017-01-24] MEDS ORDERED: NAPR500 PO (08:50)
[2017-01-24] MEDS ORDERED: CLOPIDOGREL 75 MG TAB PO SCH (09:00)
[2017-01-24] MEDS ORDERED: HYDROCHLOROTHIAZIDE 25 MG TAB PO SCH (09:00)
[2017-01-24] MEDS ORDERED: EPA PO SCH (09:00)
[2017-01-24] MEDS ORDERED: DHA PO SCH (09:00)
[2017-01-24] MEDS ORDERED: INSULIN DETEMIR 100 UNITS/ML VIAL SQ SCH (09:00)
[2017-01-24] MEDS ORDERED: D3 PO SCH (09:00)
[2017-01-24] MEDS ORDERED: PANTOPRAZOLE SOD 40 MG DELAYED RELEASE TAB PO SCH (09:00)
[2017-01-24] MEDS ORDERED: ASPIRIN EC 81 MG TABEC PO SCH (09:00)
[2017-01-24] MEDS ORDERED: CHOLECALCIFEROL (VIT D3) 1000 UNIT TAB PO SCH (09:00)
[2017-01-24] MEDS ORDERED: DIVALPROEX SODIUM E.R. 250 MG TAB PO SCH (09:00)
[2017-01-24] MEDS ORDERED: TORSEMIDE 5 MG TAB PO SCH (09:00)
[2017-01-24] MEDS ORDERED: [UNRECOGNIZED DRUG - OTHER] PO SCH (09:00)
[2017-01-24] MEDS ORDERED: COD LIVER OIL PO SCH (09:00)
[2017-01-24] MEDS ORDERED: LOSARTAN 50 MG TAB PO SCH (09:00)
[2017-01-24] MEDS ORDERED: LEVOTHYROXINE SODIUM 50 MCG TAB PO SCH (09:00)
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
[2017-01-24] MEDS: CARVEDILOL 6.25 MG TAB PO SCH (09:20)
[2017-01-24] MEDS: BECLOMETHASONE DIPROPIONATE 80 MCG/ACT 8.7 GM INHALER INH SCH (09:20)
[2017-01-24] MEDS: DOCUSATE SODIUM 50 MG/SENNA 8.6 MG TAB PO SCH (09:21)
[2017-01-24] MEDS: NAPROXEN 500 MG TAB PO SCH (09:21)
[2017-01-24] MEDS: SODIUM CHLORIDE 0.9% FLUSH 10 ML FLUSH IV FLUSH SCH (09:24)
--- NOTE | 2017-01-24 17:25 | EKG ---
Date Performed: 01/23/2017 Time Performed: 22:11:38 PTAGE: 86 years EKG: Sinus rhythm MODERATE INTRAVENTRICULAR CONDUCTION DELAY ST DEVIATION AND MODERATE T-WAVE ABNORMALITY, CONSIDER LA TERAL ISCHEMIA ST DEVIATION AND MODERATE T-WAVE ABNORMALITY, CONSIDER INFERIOR ISCHEMIA ABNORMAL ECG Compared to prior tracing no significant change PREVIOUS TRACING : 01/23/2017 15.27 DOCTOR: Rohit Sharif Interpretating Date/Time 01/24/2017 17:20:52
--- NOTE | 2017-01-24 17:25 | EKG ---
Date Performed: 01/23/2017 Time Performed: 15:27:28 PTAGE: 86 years EKG: Sinus rhythm MODERATE INTRAVENTRICULAR CONDUCTION DELAY ST DEVIATION AND MODERATE T-WAVE ABNORMALITY, CONSIDER LA TERAL ISCHEMIA ST DEVIATION AND MODERATE T-WAVE ABNORMALITY, CONSIDER INFERIOR ISCHEMIA ABNORMAL ECG Compared to prior tracing no significant change PREVIOUS TRACING : 01/23/2017 09.19 DOCTOR: Rohit Sharif Interpretating Date/Time 01/24/2017 17:21:00
--- NOTE | 2017-01-24 17:26 | EKG ---
Date Performed: 01/23/2017 Time Performed: 09:19:49 PTAGE: 86 years EKG: Sinus rhythm WITH OCCASIONAL VENTRICULAR PREMATURE COMPLEXES MODERATE INTRAVENTRICULAR CONDUCTION DELAY ST DEVIAT ION AND MODERATE T-WAVE ABNORMALITY, CONSIDER LATERAL ISCHEMIA ABNORMAL ECG Compared to prior tracing no significant change PREVIOUS TRACING : 01/03/2017 08.46 DOCTOR: Rohit Sharif Interpretating Date/Time 01/24/2017 17:21:10
== END 2017-01-24 12:48 | disposition home or self-care (01) ==
LOC: NEPE 08:59 → NEDA 11:29 → NEPGCP 13:09
PROVIDERS: ADMIT Internal Medicine; ATTEND Internal Medicine
DX: R07.9 Chest pain, unspecified (principal); R06.02 Shortness of breath; Z79.01 Long term (current) use of anticoagulants; N18.3 Chronic kidney disease, stage 3 (moderate); I13.0 Hypertensive heart and chronic kidney disease with heart failure and stage 1 through stage 4 chronic kidney disease, or unspecified chronic kidney disease; E78.00 Pure hypercholesterolemia, unspecified; Z86.73 Personal history of transient ischemic attack (TIA), and cerebral infarction without residual deficits; E11.22 Type 2 diabetes mellitus with diabetic chronic kidney disease; K21.9 Gastro-esophageal reflux disease without esophagitis; Z79.899 Other long term (current) drug therapy; Z79.4 Long term (current) use of insulin; M19.011 Primary osteoarthritis, right shoulder; J98.11 Atelectasis; R51 Headache; E78.5 Hyperlipidemia, unspecified; E03.9 Hypothyroidism, unspecified; I25.10 Atherosclerotic heart disease of native coronary artery without angina pectoris; I27.2 Other secondary pulmonary hypertension; I49.3 Ventricular premature depolarization; I35.0 Nonrheumatic aortic (valve) stenosis; R94.31 Abnormal electrocardiogram [ECG] [EKG]
CPT/HCPCS: 70450; 71010; 71275; 80053; 82550; 82552; 82948; 83690; 83735; 83880; 84443; 84484; 85025; 85610; 85730; 93005; 96372; 99285; G0378; J1644; J1815; Q9967

== ENCOUNTER 2017-01-28 04:09 | Observation (INO) | payer OTHER ==
[2017-01-28] VITALS (11 sets, daily range): BP systolic 132–191; BP diastolic 62–77; PULSE 60–93; RESP 17–20; TEMP 97.5–98.3; O2SAT 96–100
[~2017-01-28] VITALS: Ht 160 cm; Wt 90.3 kg
[~2017-01-28 04:09] MED LIST changes: +BECL80AE3 INH; +CARV6.25 PO; +CODCAP6 PO; -HYDR-3516 PO; +HYDR-3535 PO; -HYDR25TA5 PO; -METO25TA3 PO; +NAPR500 PO; -NORC5TAB PO; +PANT40TA3 PO; -RANI150T PO; +TORS5TAB2 PO
[2017-01-28] MEDS ORDERED: SODIUM CHLOR 0.9% 1000 ML INJ 1,000 ML IV SCH (05:14)
[2017-01-28] MEDS ORDERED: SODIUM CHLORIDE 0.9% FLUSH 10 ML FLUSH IV FLUSH PRN ×2 (05:15→07:00)
[2017-01-28] MEDS ORDERED: ONDANSETRON HCL 4 MG/2 ML VIAL IVP ONE (05:15)
--- NOTE | 2017-01-28 05:28 | PD ---
HPI Chief Complaint: AGUILAR/NAUSEA Time Seen by Provider: 05:13 Travel History International Travel<30 days: No Contact w/Intl Traveler<30days: No Traveled to known affect area: No History of Present Illness HPI C/O GENERALIZED AGUILAR, 12/22, NONRAD, ASSOC WITH NAUSEA, LAST EPISODE SINCE 4HRS AGO , DENIES ANY CURRENT ABD PAIN/V/D/CP/ BUT STATES HAS CHRONIC KIDNEY DZ (ON TORSEMIDE)....NO ALLEVIATING/AGGRAVATING FACTORS PFSH Past Medical History Hx Anticoagulant Therapy: Yes Arthritis: Yes Asthma: Yes Autoimmune Disease: No Blood Disorders: No Heart Rhythm Problems: No Cancer: No Cardiac Catheterization: No Cardiovascular Problems: Yes High Cholesterol: Yes Chemotherapy: No Chest Pain: No Congestive Heart Failure: No COPD: No Cerebrovascular Accident: Yes Diabetes: No Diminished Hearing: No Endocrine: No Gastrointestinal Disorders: Yes GERD: Yes Genitourinary: No Hepatitis: No Hypertension: Yes Immune Disorder: No Implanted Vascular Access Dvce: Yes Kidney Stones: No Musculoskeletal: No Neurologic: No Psychiatric: No Reproductive: No Respiratory: No Integumentary: Yes Migraines: Yes Myocardial Infarction: No Radiation Therapy: No Renal Failure: No Sleep Apnea: No Thyroid Disease: No Ulcer: No PNEUMOCCOCAL Vaccine (Year): 2009 Menopausal: Yes : 5 Para: 5 Miscarriage: 0 : 0 Past Surgical History Abdominal Surgery: Yes ( ) Appendectomy: Yes Body Medical Devices: KNEE Cholecystectomy: Yes Coronary Artery Bypass Graft: No Eye Surgery: Yes (taylor cataracts removed) Gynecologic Surgery: Yes Hysterectomy: Yes Insulin Pump: No Joint Replacement: No Pacemaker: No Thoracic Surgery: No Other Surgery: Yes (RIGHT CARPAL TUNNEL; LYMPH NODE REMOVAL NECK) Social History Alcohol Use: No Tobacco Use: No Substance Use: No Allergies-Medications (Allergen,Severity, Reaction): Coded Allergies: cyclobenzaprine (Unverified Allergy, Intermediate, DIZZY, 01/28/17) aspirin (Unverified Adverse Reaction, Mild, 01/28/17) upset stomach Reported Meds & Prescriptions Reported Meds & Active Scripts Active Pantoprazole (Pantoprazole Sodium) 40 Mg Tab 40 Mg PO DAILY Torsemide 5 Mg Tab 5 Mg PO BID@,18 Coreg (Carvedilol) 6.25 Mg Tab 6.25 Mg PO Q12HR Reported Cod Liver Oil Softgel (Om3/Dha/Epa/Cod Liver Oil/A/D3) 1 Each Capsule 1 Cap PO DAILY Lipitor (Atorvastatin Calcium) 80 Mg Tab 80 Mg PO HS Losartan (Losartan Potassium) 100 Mg Tab 100 Mg PO DAILY Clopidogrel (Clopidogrel Bisulfate) 75 Mg Tab 75 Mg PO DAILY Vitamin D3 (Cholecalciferol) 1,000 Unit Tab 1,000 Units PO DAILY Lantus Inj (Insulin Glargine) 1,000 Unit/10 Ml Vial 11 Units SQ DAILY @1100 Levothyroxine (Levothyroxine Sodium) 50 Mcg Tab 50 Mcg PO DAILY Divalproex ER (Divalproex Sodium) 250 Mg Haylee 250 Mg PO DAILY Review of Systems Except as stated in HPI: all other systems reviewed are Neg HENT: Positive: Headaches Physical Exam Narrative GENERAL: SKIN: Warm and dry. HEAD: Atraumatic. Normocephalic. EYES: Pupils equal and round. No scleral icterus. No injection or drainage. ENT: No nasal bleeding or discharge. Mucous membranes pink and moist. NECK: Trachea midline. No JVD. CARDIOVASCULAR: Regular rate and rhythm. RESPIRATORY: No accessory muscle use. Clear to auscultation. Breath sounds equal bilaterally. GASTROINTESTINAL: Abdomen soft, non-tender, nondistended. MUSCULOSKELETAL: Extremities without clubbing, cyanosis, or edema. No obvious deformities. NEUROLOGICAL: Awake and alert. No obvious cranial nerve deficits. Motor grossly within normal limits. Five out of 5 muscle strength in the arms and legs. Normal speech. PSYCHIATRIC: Appropriate mood and affect; insight and judgment normal. Data Data Last Documented VS Orders Orders Complete Blood Count With Diff (01/28/17 05:14) Comprehensive Metabolic Panel (01/28/17 05:14) Lipase (01/28/17 05:14) Prothrombin Time / Inr (Pt) (01/28/17 05:14) Act Partial Throm Time (Ptt) (01/28/17 05:14) Urinalysis - C+S If Indicated (01/28/17 05:14) Iv Access Insert/Monitor (01/28/17 05:14) Ecg Monitoring (01/28/17 05:14) Oximetry (01/28/17 05:14) NPO (01/28/17 05:14) Ondansetron Inj (Zofran Inj) (01/28/17 05:15) Sodium Chlor 0.9% 1000 Ml Inj (Ns 1000 M (01/28/17 05:14) Sodium Chloride 0.9% Flush (Ns Flush) (01/28/17 05:15) Electrocardiogram (01/28/17 05:14) Troponin I (01/28/17 05:14) Ct Brain W/O Iv Contrast(Rout) (01/28/17 ) Hydralazine Inj (Apresoline Inj) (01/28/17 05:30) Hydromorphone Pf Inj (Dilaudid Pf Inj) (01/28/17 05:30) Admit Order (Ed Use Only) (01/28/17 06:32) Labs Laboratory Tests Test 01/28/17 05:15 01/28/17 06:23 White Blood Count 9.2 TH/MM3 Red Blood Count 4.05 MIL/MM3 Hemoglobin 11.5 GM/DL Hematocrit 35.1 % Mean Corpuscular Volume 86.7 FL Mean Corpuscular Hemoglobin 28.3 PG Mean Corpuscular Hemoglobin Concent 32.6 % Red Cell Distribution Width 13.7 % Platelet Count 232 TH/MM3 Mean Platelet Volume 10.3 FL Neutrophils (%) (Auto) 59.9 % Lymphocytes (%) (Auto) 27.2 % Monocytes (%) (Auto) 6.1 % Eosinophils (%) (Auto) 5.6 % Basophils (%) (Auto) 1.2 % Neutrophils # (Auto) 5.5 TH/MM3 Lymphocytes # (Auto) 2.5 TH/MM3 Monocytes # (Auto) 0.6 TH/MM3 Eosinophils # (Auto) 0.5 TH/MM3 Basophils # (Auto) 0.1 TH/MM3 CBC Comment DIFF FINAL Differential Comment Prothrombin Time 11.3 SEC Prothromb Time International Ratio 1.0 RATIO Activated Partial Thromboplast Time 23.8 SEC Blood Urea Nitrogen 40 MG/DL Creatinine 1.89 MG/DL Random Glucose 140 MG/DL Total Protein 7.6 GM/DL Albumin 3.7 GM/DL Calcium Level 8.5 MG/DL Alkaline Phosphatase 69 U/L Aspartate Amino Transf (AST/SGOT) 22 U/L Alanine Aminotransferase (ALT/SGPT) 24 U/L Total Bilirubin 0.4 MG/DL Sodium Level 139 MEQ/L Potassium Level 4.9 MEQ/L Chloride Level 104 MEQ/L Carbon Dioxide Level 28.1 MEQ/L Anion Gap 7 MEQ/L Estimat Glomerular Filtration Rate 31 ML/MIN Troponin I 0.09 NG/ML Lipase 316 U/L Urine Color YELLOW Urine Turbidity CLEAR Urine pH 6.0 Urine Specific [place] 1.015 Urine Protein TRACE mg/dL Urine Glucose (UA) NEG mg/dL Urine Ketones NEG mg/dL Urine Occult Blood NEG Urine Nitrite NEG Urine Bilirubin NEG Urine Urobilinogen LESS THAN 2.0 MG/DL Urine Leukocyte Esterase TRACE Urine RBC LESS THAN 1 /hpf Urine WBC 1 /hpf Urine Squamous Epithelial Cells 1 /hpf Microscopic Urinalysis Comment CULT NOT INDICATED MDM Medical Decision Making Medical Screen Exam Complete: Yes Emergency Medical Condition: Yes Medical Record Reviewed: Yes Interpretation(s) NSR 71, P MITRALE, LVH, INF LATERAL T WAVE INVERSIONS Differential Diagnosis HTN V TENSION AGUILAR V ICH V ELECTROLYTE ABNL Narrative Course PATIENT FOUND TO HAVE NL CBC AND COAG. SBP IMPROVED FROM 188 TO 137 AFTER HYDRALAZINE GIVEN, CT HEAD NEG FOR ICH, CMP SHOWS RENAL INSUFF OF CREATININE 1.89 AND BUN 40 WELL TROPONIN 0.09 (as e/o hypertensive urgency as well as headache which may be due to hypertensive encephalopathy, to be further evaluated by admitting physician) Critical Care Narrative CRITICAL CARE NOTE: With evaluation of the patient, labs, EKG, receipt of radiologic studies, administration of medications, reevaluation the patient and discussion of the patient with the admitting physicians, the total critical care time was [30] minutes. Time to perform other separately billable procedures was not included in the critical care time. Diagnosis Primary Impression: NONSTEMI Additional Impression: hypertensive urgency Admitting Information Admitting Physician Requests: Observation Jeffry Suggs MD Jan 28, 2017 05:28
[2017-01-28] MEDS ORDERED: hydrALAZINE HCL 20 MG/ML VIAL IV PUSH ONE (05:30)
[2017-01-28] MEDS ORDERED: HYDROmorphone HCL PF 1 MG/ML VIAL IV PUSH ONE (05:30)
[2017-01-28 05:45] LABS: AUTOMATED NEUTROPHIL # 5.5 TH/MM3 (1.8-7.7); BASOPHIL # 0.1 TH/MM3 (0-0.2); BASOPHIL % 1.2 % (0.0-2.0); EOSINOPHIL # 0.5 TH/MM3 (0-0.4); EOSINOPHIL % 5.6 % (0.0-4.0); HEMATOCRIT 35.1 % (35.0-46.0); HEMO FLAGS DIFF FINAL; LYMPH % 27.2 % (9.0-44.0); LYMPHOCYTE # 2.5 TH/MM3 (1.0-4.8); MEAN CELL VOLUME 86.7 FL (80.0-100.0); MEAN CORPUSCULAR HEMOGLOBIN 28.3 PG (27.0-34.0); MEAN CORPUSCULAR HGB CONC 32.6 % (32.0-36.0); MONO % 6.1 % (0.0-8.0); NEUT % 59.9 % (16.0-70.0); PLATELET COUNT 232 TH/MM3 (150-450); RED BLOOD COUNT 4.05 MIL/MM3 (4.00-5.30); RED CELL DISTRIBUTION WIDTH 13.7 % (11.6-17.2); WHITE BLOOD COUNT 9.2 TH/MM3 (4.0-11.0)
[2017-01-28 06:02] LABS: APTT (PATIENT) 23.8 SEC (24.3-30.1); PROTHROMBIN TIME - PATIENT 11.3 SEC (9.8-11.6)
[2017-01-28 06:13] LABS: ALT (GPT) 24 U/L (10-53)
[2017-01-28 06:17] LABS: ALKALINE PHOSPHATASE 69 U/L (45-117); TOTAL BILIRUBIN ADULT 0.4 MG/DL (0.2-1.0)
[2017-01-28 06:18] LABS: ANION GAP 7 MEQ/L (5-15); AST (GOT) 22 U/L (15-37); BICARBONATE 28.1 MEQ/L (21.0-32.0); BLOOD UREA NITROGEN 40 MG/DL (7-18); CHLORIDE 104 MEQ/L (98-107); GLOMERULAR FILTRATION RATE 31 ML/MIN (>89); POTASSIUM 4.9 MEQ/L (3.5-5.1); SODIUM (NA) 139 MEQ/L (136-145)
--- NOTE | 2017-01-28 06:27 | RADRPT ---
EXAM DATE/TIME: 01/28/2017 06:07 [place] COMPARISON: CT BRAIN W/O CONTRAST, January 23, 2017, 10:38. INDICATIONS : Cephalgia. RADIATION DOSE: 56.86 CTDIvol (mGy) MEDICAL HISTORY : Hypertension. SURGICAL HISTORY : None. ENCOUNTER: Initial ACUITY: 1 day PAIN SCALE: 7/10 LOCATION: cranial TECHNIQUE: Multiple contiguous axial images were obtained of the head. Using automated exposure control and adj ustment of the mA and/or kV according to patient size, radiation dose was kept as low as reasonably a chievable to obtain optimal diagnostic quality images. DICOM format image data is available electro nically for review and comparison. FINDINGS: CEREBRUM: The ventricles are normal for age. No evidence of midline shift, mass lesion, hemorrhage or acute in farction. No extra-axial fluid collections are seen. POSTERIOR FOSSA: The cerebellum and brainstem are intact. The 4th ventricle is midline. The cerebellopontine angle i s unremarkable. EXTRACRANIAL: The visualized portion of the orbits is intact. SKULL: The calvaria is intact. No evidence of skull fracture. CONCLUSION: Normal examination. No acute process. Chun Denton MD on January 28, 2017 at 6:25 Board Certified Radiologist. This report was verified electronically.
[2017-01-28] MEDS ORDERED: NALOXONE HCL 0.4 MG/ML AMP IV PRN (07:00)
[2017-01-28 07:06] LABS: BLOOD, URINE NEG (NEG); COMMENT (UR) CULT NOT INDICATED; CULTURE IF INDICATED CULT NOT INDICATED; GLUCOSE,URINE NEG (NEG); KETONE, URINE NEG (NEG); NITRITE,URINE NEG (NEG); SQUAMOUS EPITHELIAL CELL URINE 1 /hpf (0-5); URINE COLOR YELLOW (YELLW/STRAW)
[2017-01-28] MEDS ORDERED: hydrALAZINE HCL 20 MG/ML VIAL IV PUSH PRN (07:15)
[2017-01-28] MEDS: SODIUM CHLORIDE 0.9% FLUSH 10 ML FLUSH IV FLUSH SCH ×2 (08:59→20:46)
--- NOTE | 2017-01-28 10:03 | HHI.HP ---
cc: Carol Morales MD [facility] Service [facility] Primary Care Physician Carol Morales MD Admission Diagnosis NONSTEMI, HYPERTENSIVE URGENCY Diagnoses: (1) Headache Diagnosis: Principal (2) Hypertension (3) Elevated troponin (4) Diabetes mellitus (5) CHF (congestive heart failure) (6) Hypothyroidism Chief Complaint: Headache Travel History International Travel<30 Days: No Contact w/Intl Traveler <30 Da: No Traveled to Known Affected Are: No History of Present Illness The patient is an 86-year-old female who presented to the emergency department with complaint of headache with onset at 2 AM today. She reports that the headache got as bad as 9/10. Pain is in the occipital region and is worse with coughing. Currently pain is 7/10. She reported an episode of 3-4 minutes of visual disturbance. She states that she could not see clearly, but when she put her glasses on her vision returned to normal. Denies chest pain or dyspnea. Review of Systems Constitutional: DENIES: Fever, Chills, Night Sweats Eyes: DENIES: Blurred vision, Vision loss Ears, nose, mouth, throat: DENIES: Hearing loss Respiratory: DENIES: Cough, Wheezing, Sputum production, Shortness of breath Cardiovascular: DENIES: Chest pain, Palpitations, Dyspnea on Exertion, Lower Extremity Edema Gastrointestinal: DENIES: Abdominal pain, Constipation, Diarrhea, Nausea, Vomiting Genitourinary: DENIES: Urinary frequency, Urinary incontinence, Urgency, Hematuria, Dysuria, Nocturia Musculoskeletal: DENIES: Joint pain, Muscle aches Integumentary: DENIES: Pruritus, Rash Hematologic/lymphatic: DENIES: Bruising Neurologic: COMPLAINS OF: Headache Past Family Social History Past Medical History Hyperlipidemia Hypertension Diabetes mellitus, insulin-dependent Asthma Osteoarthritis Migraine headaches TIA GERD Hypothyroidism Chronic systolic congestive heart failure Past Surgical History Appendectomy Cholecystectomy Knee replacement Bilateral cataract surgery Hysterectomy Right carpal tunnel release Lymph node excision from neck Reported Medications Pantoprazole (Pantoprazole Sodium) 40 Mg Tab 40 Mg PO DAILY Torsemide 5 Mg Tab 5 Mg PO BID@09,18 Coreg (Carvedilol) 6.25 Mg Tab 6.25 Mg PO Q12HR Cod Liver Oil Softgel (Om3/Dha/Epa/Cod Liver Oil/A/D3) 1 Each Capsule 1 Cap PO DAILY Lipitor (Atorvastatin Calcium) 80 Mg Tab 80 Mg PO HS Losartan (Losartan Potassium) 100 Mg Tab 100 Mg PO DAILY Clopidogrel (Clopidogrel Bisulfate) 75 Mg Tab 75 Mg PO DAILY Vitamin D3 (Cholecalciferol) 1,000 Unit Tab 1,000 Units PO DAILY Lantus Inj (Insulin Glargine) 1,000 Unit/10 Ml Vial 11 Units SQ DAILY @1100 Levothyroxine (Levothyroxine Sodium) 50 Mcg Tab 50 Mcg PO DAILY Divalproex ER (Divalproex Sodium) 250 Mg Haylee 250 Mg PO DAILY Allergies: Coded Allergies: cyclobenzaprine (Unverified Allergy, Intermediate, DIZZY, 01/28/17) aspirin (Unverified Adverse Reaction, Mild, 01/28/17) upset stomach Family History Family history significant for kidney problems. Social History Quit smoking 30 years ago. Denies alcohol or illicit drug use. Physical Exam Vital Signs Vital Signs Date Time Temp Pulse Resp B/P Pulse Ox O2 Delivery O2 Flow Rate FiO2 01/28/17 08:26 98.3 60 17 134/63 98 Room Air 01/28/17 06:34 62 18 132/62 99 Room Air 01/28/17 06:02 84 137/65 99 01/28/17 04:14 97.5 93 20 191/77 99 Physical Exam GENERAL: Elderly female in no acute distress. HEENT: Normocephalic, atraumatic. Pupils equal, round and reactive. Extraocular movements intact. No scleral icterus. No injection or drainage. Oropharynx is clear. Mucous membranes are moist. CARDIOVASCULAR: Regular rate and rhythm without murmurs, gallops, or rubs. RESPIRATORY: Clear to auscultation. No wheezes, rales, or rhonchi. Breathing is non-labored. GASTROINTESTINAL: Abdomen soft, non-tender, nondistended. EXTREMITIES: No lower extremity edema. No calf tenderness. PSYCH: Alert and oriented x 3. NEURO: Cranial nerves II through XII are grossly intact. Strength is 5/5 in all 4 extremities. Laboratory Laboratory Tests Test 01/28/17 01/28/17 05:15 06:23 White Blood Count 9.2 Red Blood Count 4.05 Hemoglobin 11.5 Hematocrit 35.1 Mean Corpuscular Volume 86.7 Mean Corpuscular Hemoglobin 28.3 Mean Corpuscular Hemoglobin 32.6 Concent Red Cell Distribution Width 13.7 Platelet Count 232 Mean Platelet Volume 10.3 Neutrophils (%) (Auto) 59.9 Lymphocytes (%) (Auto) 27.2 Monocytes (%) (Auto) 6.1 Eosinophils (%) (Auto) 5.6 Basophils (%) (Auto) 1.2 Neutrophils # (Auto) 5.5 Lymphocytes # (Auto) 2.5 Monocytes # (Auto) 0.6 Eosinophils # (Auto) 0.5 Basophils # (Auto) 0.1 CBC Comment DIFF FINAL Differential Comment Prothrombin Time 11.3 Prothromb Time International 1.0 Ratio Activated Partial 23.8 Thromboplast Time Sodium Level 139 Potassium Level 4.9 Chloride Level 104 Carbon Dioxide Level 28.1 Anion Gap 7 Blood Urea Nitrogen 40 Creatinine 1.89 Estimat Glomerular Filtration 31 Rate Random Glucose 140 Calcium Level 8.5 Total Bilirubin 0.4 Aspartate Amino Transf 22 (AST/SGOT) Alanine Aminotransferase 24 (ALT/SGPT) Alkaline Phosphatase 69 Troponin I 0.09 Total Protein 7.6 Albumin 3.7 Lipase 316 Urine Color YELLOW Urine Turbidity CLEAR Urine pH 6.0 Urine Specific [place] 1.015 Urine Protein TRACE Urine Glucose (UA) NEG Urine Ketones NEG Urine Occult Blood NEG Urine Nitrite NEG Urine Bilirubin NEG Urine Urobilinogen LESS THAN 2.0 Urine Leukocyte Esterase TRACE Urine RBC LESS THAN 1 Urine WBC 1 Urine Squamous Epithelial 1 Cells Microscopic Urinalysis Comment CULT NOT INDICATED Result Diagram: 01/28/17 0515 01/28/17 0515 Imaging Last Impressions Head CT 01/28/17 0000 Signed Impressions: Service Date/Time: Thursday, January 28, 2017 06:07 - CONCLUSION: Normal examination. No acute process. Chun Denton MD Assessment and Plan Assessment and Plan 1. Headache: Uncertain etiology. Patient does report history of migraines and prior TIA. Sudden onset this morning. It has improved somewhat. Continue pain control. Continue blood pressure control. Continue Depakote. 2. Hypertension: Blood pressure was significantly elevated upon presentation to the ER. Control is now better. Continue losartan, carvedilol. 3. Acute kidney injury superimposed on chronic kidney disease stage III: Monitor BUN and creatinine. Gentle IV fluid hydration. 4. Chronic systolic congestive heart failure: Echocardiogram in December 2016 showed ejection fraction 35-40%. Not currently in acute exacerbation. Use caution with IV fluids. 5. Hypothyroidism: Continue Synthroid. 6. Hyperlipidemia, CAD: Continue statin. 7. Diabetes mellitus: Monitor Accu-Cheks and cover with sliding scale insulin. Continue basal insulin. 8. DVT prophylaxis: Subcutaneous heparin. 9. Elevated troponin: Troponin has remained mildly elevated over the past month. Check serial cardiac enzymes. No current chest pain. Problem Qualifiers (1) Diabetes mellitus: (2) CHF (congestive heart failure): Qualified Code: I50.22 - Chronic systolic congestive heart failure Kev Wilcox MD Jan 28, 2017 10:03
[2017-01-28] MEDS: INSULIN DETEMIR 100 UNITS/ML VIAL SQ SCH (13:08)
[2017-01-28] MEDS: CLOPIDOGREL 75 MG TAB PO SCH (13:09)
[2017-01-28] MEDS: DIVALPROEX SODIUM E.R. 250 MG TAB PO SCH (13:09)
[2017-01-28] MEDS: LOSARTAN 50 MG TAB PO SCH (13:09)
[2017-01-28] MEDS: HEPARIN SODIUM - SQ 10,000 UNITS/ML VIAL SQ SCH ×2 (13:09→20:47)
[2017-01-28] MEDS: PANTOPRAZOLE SOD 40 MG DELAYED RELEASE TAB PO SCH (13:10)
[2017-01-28] MEDS ORDERED: ACETAMINOPHEN 325 MG TAB PO PRN (15:00)
--- NOTE | 2017-01-28 15:01 | EKG ---
Date Performed: 01/28/2017 Time Performed: 05:28:41 PTAGE: 86 years EKG: Sinus rhythm LEFT VENTRICULAR HYPERTROPHY AND ST-T CHANGE ABNORMAL ECG Compared to the PREVIOUS TRACING from 01/23/17, no significant change DOCTOR: Neftali Knight Interpretating Date/Time 01/28/2017 14:59:17
[2017-01-28] MEDS: CARVEDILOL 6.25 MG TAB PO SCH (20:46)
[2017-01-28] MEDS: TORSEMIDE 5 MG TAB PO SCH (20:46)
[2017-01-28] MEDS ORDERED: ATORVASTATIN 80 MG TAB PO SCH (21:00)
[2017-01-29 00:10] VITALS: BP 101/53; PULSE 60; RESP 16; TEMP 98.3; O2SAT 97
[2017-01-29 04:43] VITALS: BP 100/49; PULSE 62; RESP 18; TEMP 98.3; O2SAT 100
[2017-01-29] MEDS ORDERED: LEVOTHYROXINE SODIUM 50 MCG TAB PO SCH (06:00)
[2017-01-29 08:00] VITALS: BP 119/53; PULSE 66; PULSE 68; RESP 18; TEMP 98.5; O2SAT 97
[2017-01-29] MEDS: SODIUM CHLORIDE 0.9% FLUSH 10 ML FLUSH IV FLUSH SCH (08:05)
[2017-01-29] MEDS: PANTOPRAZOLE SOD 40 MG DELAYED RELEASE TAB PO SCH (08:06)
[2017-01-29] MEDS: CARVEDILOL 6.25 MG TAB PO SCH (08:07)
[2017-01-29] MEDS: LOSARTAN 50 MG TAB PO SCH (08:07)
[2017-01-29] MEDS: TORSEMIDE 5 MG TAB PO SCH (08:07)
[2017-01-29] MEDS: CLOPIDOGREL 75 MG TAB PO SCH (08:07)
[2017-01-29] MEDS: HEPARIN SODIUM - SQ 10,000 UNITS/ML VIAL SQ SCH (08:08)
[2017-01-29] MEDS: DIVALPROEX SODIUM E.R. 250 MG TAB PO SCH (08:08)
[2017-01-29] MEDS ORDERED: DHA PO SCH (09:00)
[2017-01-29] MEDS ORDERED: EPA PO SCH (09:00)
[2017-01-29] MEDS ORDERED: COD LIVER OIL PO SCH (09:00)
[2017-01-29] MEDS ORDERED: CHOLECALCIFEROL (VIT D3) 1000 UNIT TAB PO SCH (09:00)
[2017-01-29] MEDS ORDERED: D3 PO SCH (09:00)
[2017-01-29] MEDS ORDERED: [UNRECOGNIZED DRUG - OTHER] PO SCH (09:00)
[2017-01-29 09:27] LABS: AUTOMATED NEUTROPHIL # 2.5 TH/MM3 (1.8-7.7); BASOPHIL % 0.8 % (0.0-2.0); EOSINOPHIL # 0.4 TH/MM3 (0-0.4); EOSINOPHIL % 7.5 % (0.0-4.0); HEMATOCRIT 30.5 % (35.0-46.0); HEMO FLAGS DIFF FINAL; LYMPHOCYTE # 2.3 TH/MM3 (1.0-4.8); MEAN CELL VOLUME 86.9 FL (80.0-100.0); MEAN CORPUSCULAR HEMOGLOBIN 28.6 PG (27.0-34.0); MEAN CORPUSCULAR HGB CONC 32.9 % (32.0-36.0); MONO % 9.1 % (0.0-8.0); NEUT % 42.6 % (16.0-70.0); PLATELET COUNT 175 TH/MM3 (150-450); RED BLOOD COUNT 3.51 MIL/MM3 (4.00-5.30); RED CELL DISTRIBUTION WIDTH 13.5 % (11.6-17.2); WHITE BLOOD COUNT 5.8 TH/MM3 (4.0-11.0)
[2017-01-29 10:15] LABS: ALKALINE PHOSPHATASE 54 U/L (45-117); ALT (GPT) 20 U/L (10-53); ANION GAP 7 MEQ/L (5-15); AST (GOT) 10 U/L (15-37); BICARBONATE 29.7 MEQ/L (21.0-32.0); BLOOD UREA NITROGEN 40 MG/DL (7-18); CHLORIDE 104 MEQ/L (98-107); GLOMERULAR FILTRATION RATE 34 ML/MIN (>89); SODIUM (NA) 141 MEQ/L (136-145); TOTAL BILIRUBIN ADULT 0.4 MG/DL (0.2-1.0)
[2017-01-29] MEDS: INSULIN DETEMIR 100 UNITS/ML VIAL SQ SCH (11:00)
[2017-01-29 12:00] VITALS: BP 149/64; PULSE 73; RESP 18; TEMP 98.8; O2SAT 98
--- NOTE | 2017-01-29 13:30 | HHI.DCPOC ---
Discharge Care Plan Diagnosis: (1) Elevated troponin (2) Hypertension (3) Hypothyroidism (4) CHF (congestive heart failure) (5) Headache (6) Diabetes mellitus Goals to Promote Your Health * To prevent worsening of your condition and complications * To maintain your health at the optimal level Directions to Meet Your Goals Take your medications as prescribed Follow your dietary instruction Follow activity as directed Keep your appointments as scheduled Take your immunizations and boosters as scheduled If your symptoms worsen call your PCP, if no PCP go to Urgent Care Center or Emergency Room Smoking is Dangerous to Your Health. Avoid second hand smoke Call the 24-hour hour crisis hotline for domestic abuse at Kev Wilcox MD Jan 29, 2017 13:30
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
== END 2017-01-29 15:19 | disposition home or self-care (01) ==
LOC: NEPC 04:09 → NEDA 06:34 → N04B 18:26
PROVIDERS: ADMIT Family Medicine; ATTEND Family Medicine
DX: I13.0 Hypertensive heart and chronic kidney disease with heart failure and stage 1 through stage 4 chronic kidney disease, or unspecified chronic kidney disease (principal); I50.22 Chronic systolic (congestive) heart failure; N18.3 Chronic kidney disease, stage 3 (moderate); E11.22 Type 2 diabetes mellitus with diabetic chronic kidney disease; Z79.4 Long term (current) use of insulin; E03.9 Hypothyroidism, unspecified; E78.5 Hyperlipidemia, unspecified; I25.10 Atherosclerotic heart disease of native coronary artery without angina pectoris; J45.909 Unspecified asthma, uncomplicated; K21.9 Gastro-esophageal reflux disease without esophagitis; N17.9 Acute kidney failure, unspecified; R74.8 Abnormal levels of other serum enzymes; Z86.73 Personal history of transient ischemic attack (TIA), and cerebral infarction without residual deficits; I47.2 Ventricular tachycardia; Z87.891 Personal history of nicotine dependence; Z79.01 Long term (current) use of anticoagulants; Z79.899 Other long term (current) drug therapy
CPT/HCPCS: 70450; 80053; 81001; 82550; 83690; 84484; 85025; 85610; 85730; 93005; 96372; 96374; 96375; 99285; G0378; J1170; J1644; J2405

== ENCOUNTER 2017-02-10 22:29 | Emergency (ER) | payer OTHER ==
[~2017-02-10] VITALS: Ht 160 cm; Wt 86.6 kg
[~2017-02-10 22:29] MED LIST changes: -BACL10TA PO; -BECL80AE3 INH; -HYDR-3535 PO; -NAPR500 PO
[2017-02-10 22:32] VITALS: BP 112/67; PULSE 76; RESP 18; TEMP 98.1; O2SAT 97
--- NOTE | 2017-02-10 22:46 | PD ---
Physical Exam Time Seen by Provider: 22:44 Narrative 86yo F c/o diarrhea since last night. C/o a "little bit" of abd pain and vomiting. Denies fevers. Has tried taking Imodium. Denies urinary symptoms. Patient seen in triage. VS reviewed. Patient awaiting bed placement. Data Data Last Documented VS Vital Signs Date Time Temp Pulse Resp B/P (MAP) Pulse Ox O2 Delivery O2 Flow Rate FiO2 02/10/17 22:32 98.1 76 18 112/67 (82) 97 Room Air MDM Supervised Visit with WILLOW: Ariadne Willoughby Feb 10, 2017 22:46
[2017-02-11] MEDS ORDERED: ONDANSETRON HCL 4 MG/2 ML VIAL IVP ONE
[2017-02-11] MEDS ORDERED: SODIUM CHLORIDE 0.9% FLUSH 10 ML FLUSH IV FLUSH PRN
[2017-02-11] MEDS ORDERED: MORPHINE SULFATE 4 MG/ML INJ IV PUSH ONE
[2017-02-11] MEDS ORDERED: SODIUM CHLOR 0.9% 1000 ML INJ 1,000 ML IV SCH
[2017-02-11 00:08] VITALS: RESP 16; O2SAT 99
--- NOTE | 2017-02-11 00:20 | PD ---
HPI Chief Complaint: GI Complaint Time Seen by Provider: 23:54 Travel History International Travel<30 days: No Contact w/Intl Traveler<30days: No Traveled to known affect area: No History of Present Illness HPI 86yo F with PMH of DM here with c/o nonbloody diarrhea since yesterday. States she took imodium but did not help. Also with periumbilical abdominal pain that started this afternoon and is intermittent. Mild nausea. Denies any fever, chest pain, sob, vomiting, urinary complaints, vaginal bleeding or discharge. PFSH Past Medical History Hx Anticoagulant Therapy: Yes Arthritis: Yes Asthma: Yes Autoimmune Disease: No Blood Disorders: No Heart Rhythm Problems: No Cancer: No Cardiac Catheterization: No Cardiovascular Problems: Yes High Cholesterol: Yes Chemotherapy: No Chest Pain: No Congestive Heart Failure: No COPD: No Cerebrovascular Accident: Yes Diabetes: Yes Diminished Hearing: No Endocrine: No Gastrointestinal Disorders: Yes GERD: Yes Genitourinary: No Hepatitis: No Hiatal Hernia: No Hypertension: Yes Immune Disorder: No Implanted Vascular Access Dvce: Yes Kidney Stones: No Musculoskeletal: No Neurologic: No Psychiatric: No Reproductive: No Respiratory: No Integumentary: Yes Immunizations Current: No Migraines: Yes Myocardial Infarction: No Radiation Therapy: No Renal Failure: No Seizures: No Sleep Apnea: No Thyroid Disease: No Ulcer: No Tetanus Vaccination: Unknown Influenza Vaccination: No PNEUMOCCOCAL Vaccine (Year): 2009 ?: Not Menopausal: Yes : 5 Para: 5 Miscarriage: 0 : 0 Past Surgical History Abdominal Surgery: Yes ( ) Appendectomy: Yes Body Medical Devices: KNEE Cardiac Surgery: No Cholecystectomy: Yes Coronary Artery Bypass Graft: No Ear Surgery: No Endocrine Surgery: No Eye Surgery: Yes (taylor cataracts removed) Genitourinary Surgery: No Gynecologic Surgery: Yes Hysterectomy: Yes Insulin Pump: No Joint Replacement: No Oral Surgery: No Pacemaker: No Thoracic Surgery: No Other Surgery: Yes (RIGHT CARPAL TUNNEL; LYMPH NODE REMOVAL NECK) Social History Alcohol Use: No Tobacco Use: No Substance Use: No Allergies-Medications (Allergen,Severity, Reaction): Coded Allergies: cyclobenzaprine (Unverified Allergy, Intermediate, DIZZY, 01/28/17) aspirin (Unverified Adverse Reaction, Mild, 01/28/17) upset stomach Reported Meds & Prescriptions Reported Meds & Active Scripts Active Pantoprazole (Pantoprazole Sodium) 40 Mg Tab 40 Mg PO DAILY Torsemide 5 Mg Tab 5 Mg PO BID@09,18 Coreg (Carvedilol) 6.25 Mg Tab 6.25 Mg PO Q12HR Reported Cod Liver Oil Softgel (Om3/Dha/Epa/Cod Liver Oil/A/D3) 1 Each Capsule 1 Cap PO DAILY Lipitor (Atorvastatin Calcium) 80 Mg Tab 80 Mg PO HS Losartan (Losartan Potassium) 100 Mg Tab 100 Mg PO DAILY Clopidogrel (Clopidogrel Bisulfate) 75 Mg Tab 75 Mg PO DAILY Vitamin D3 (Cholecalciferol) 1,000 Unit Tab 1,000 Units PO DAILY Lantus Inj (Insulin Glargine) 1,000 Unit/10 Ml Vial 11 Units SQ DAILY @1100 Levothyroxine (Levothyroxine Sodium) 50 Mcg Tab 50 Mcg PO DAILY Divalproex ER (Divalproex Sodium) 250 Mg Haylee 250 Mg PO DAILY Review of Systems Except as stated in HPI: all other systems reviewed are Neg Physical Exam Narrative GENERAL: 86yo F in mild distress. SKIN: Focused skin assessment warm/dry. HEAD: Atraumatic. Normocephalic. EYES: Pupils equal and round. No scleral icterus. No injection or drainage. ENT: No nasal bleeding or discharge. Mucous membranes pink and moist. NECK: Trachea midline. No JVD. CARDIOVASCULAR: Regular rate and rhythm. No murmur appreciated. RESPIRATORY: No accessory muscle use. Clear to auscultation. Breath sounds equal bilaterally. GASTROINTESTINAL: Abdomen soft, +Periumbilical ttp. No rebound tenderness or guarding. MUSCULOSKELETAL: No obvious deformities. No clubbing. No cyanosis. No edema. NEUROLOGICAL: Awake and alert. No obvious cranial nerve deficits. Motor grossly within normal limits. Normal speech. PSYCHIATRIC: Appropriate mood and affect; insight and judgment normal. Data Data Last Documented VS Vital Signs Date Time Temp Pulse Resp B/P (MAP) Pulse Ox O2 Delivery O2 Flow Rate FiO2 02/11/17 00:08 16 99 Room Air 02/10/17 22:32 98.1 76 Orders Orders Complete Blood Count With Diff (02/11/17 00:00) Comprehensive Metabolic Panel (02/11/17 00:00) Lipase (02/11/17 00:00) Urinalysis - C+S If Indicated (02/11/17 00:00) Iv Access Insert/Monitor (02/11/17 00:00) Ecg Monitoring (02/11/17 00:00) Oximetry (02/11/17 00:00) Morphine Inj (Morphine Inj) (02/11/17 00:00) Ondansetron Inj (Zofran Inj) (02/11/17 00:00) Sodium Chlor 0.9% 1000 Ml Inj (Ns 1000 M (02/11/17 00:00) Sodium Chloride 0.9% Flush (Ns Flush) (02/11/17 00:00) Ct Abd/Pel W/O Iv Contrast (02/11/17 ) Labs Laboratory Tests Test 02/10/17 23:45 02/11/17 02:15 White Blood Count 7.6 TH/MM3 Red Blood Count 4.20 MIL/MM3 Hemoglobin 11.7 GM/DL Hematocrit 36.6 % Mean Corpuscular Volume 87.1 FL Mean Corpuscular Hemoglobin 27.9 PG Mean Corpuscular Hemoglobin Concent 32.0 % Red Cell Distribution Width 13.8 % Platelet Count 218 TH/MM3 Mean Platelet Volume 10.5 FL Neutrophils (%) (Auto) 53.7 % Lymphocytes (%) (Auto) 34.9 % Monocytes (%) (Auto) 5.8 % Eosinophils (%) (Auto) 5.1 % Basophils (%) (Auto) 0.5 % Neutrophils # (Auto) 4.1 TH/MM3 Lymphocytes # (Auto) 2.7 TH/MM3 Monocytes # (Auto) 0.4 TH/MM3 Eosinophils # (Auto) 0.4 TH/MM3 Basophils # (Auto) 0.0 TH/MM3 CBC Comment DIFF FINAL Differential Comment Blood Urea Nitrogen 48 MG/DL Creatinine 1.88 MG/DL Random Glucose 133 MG/DL Total Protein 7.9 GM/DL Albumin 3.7 GM/DL Calcium Level 8.5 MG/DL Alkaline Phosphatase 81 U/L Aspartate Amino Transf (AST/SGOT) 23 U/L Alanine Aminotransferase (ALT/SGPT) 25 U/L Total Bilirubin 0.5 MG/DL Sodium Level 136 MEQ/L Potassium Level 4.1 MEQ/L Chloride Level 102 MEQ/L Carbon Dioxide Level 23.1 MEQ/L Anion Gap 11 MEQ/L Estimat Glomerular Filtration Rate 31 ML/MIN Lipase 432 U/L Urine Color LIGHT-YELLOW Urine Turbidity CLEAR Urine pH 5.0 Urine Specific [place] 1.007 Urine Protein NEG mg/dL Urine Glucose (UA) NEG mg/dL Urine Ketones NEG mg/dL Urine Occult Blood NEG Urine Nitrite NEG Urine Bilirubin NEG Urine Urobilinogen LESS THAN 2.0 MG/DL Urine Leukocyte Esterase NEG Urine RBC LESS THAN 1 /hpf Urine WBC LESS THAN 1 /hpf Microscopic Urinalysis Comment CULT NOT INDICATED MDM Medical Decision Making Medical Screen Exam Complete: Yes Emergency Medical Condition: Yes Differential Diagnosis Gastroenteritis vs. colitis vs. UTI Narrative Course 86yo F with mild periumbilical abdominal pain and diarrhea. Labs reviewed, no leukocytosis. BUN/creatinine elevated at 48/1.88 which is baseline. Lipase mildly elevated at 432. CTa/p showed no acute finding. UA showed no leukocyte. Culture not indicated. Pt given morphine 2mg and zofran 4mg IV. Pt reevaluated at bedside and pain has resolved. Tolerating PO. Return precautions given. Diagnosis Primary Impression: Abdominal pain Qualified Codes: R10.33 - Periumbilical pain Patient Instructions: General Instructions Departure Forms: Tests/Procedures Additional Instructions: Please follow up with your primary care physician in 3-7 days. Return to the ED if symptoms worsen. Med/Other Pt SpecificInfo: Prescription(s) given Scripts Acetaminophen (Tylenol) 325 Mg Tab 325 MG PO Q4H Y for PAIN SCALE 1 TO 4, #20 TAB 0 Refills Prov: Teresita Iqbal 02/11/17 Disposition: 01 DISCHARGE HOME Condition: Stable Teresita Iqbal DO Feb 11, 2017 00:20
[2017-02-11 00:45] LABS: ALT (GPT) 25 U/L (10-53); ANION GAP 11 MEQ/L (5-15); AST (GOT) 23 U/L (15-37); BICARBONATE 23.1 MEQ/L (21.0-32.0); BLOOD UREA NITROGEN 48 MG/DL (7-18); CHLORIDE 102 MEQ/L (98-107); GLOMERULAR FILTRATION RATE 31 ML/MIN (>89); POTASSIUM 4.1 MEQ/L (3.5-5.1); SODIUM (NA) 136 MEQ/L (136-145)
[2017-02-11 00:48] LABS: ALKALINE PHOSPHATASE 81 U/L (45-117); TOTAL BILIRUBIN ADULT 0.5 MG/DL (0.2-1.0)
[2017-02-11 01:05] LABS: AUTOMATED NEUTROPHIL # 4.1 TH/MM3 (1.8-7.7); BASOPHIL % 0.5 % (0.0-2.0); EOSINOPHIL # 0.4 TH/MM3 (0-0.4); EOSINOPHIL % 5.1 % (0.0-4.0); HEMATOCRIT 36.6 % (35.0-46.0); HEMO FLAGS DIFF FINAL; LYMPH % 34.9 % (9.0-44.0); LYMPHOCYTE # 2.7 TH/MM3 (1.0-4.8); MEAN CELL VOLUME 87.1 FL (80.0-100.0); MEAN CORPUSCULAR HEMOGLOBIN 27.9 PG (27.0-34.0); MONO % 5.8 % (0.0-8.0); NEUT % 53.7 % (16.0-70.0); PLATELET COUNT 218 TH/MM3 (150-450); RED CELL DISTRIBUTION WIDTH 13.8 % (11.6-17.2); WHITE BLOOD COUNT 7.6 TH/MM3 (4.0-11.0)
--- NOTE | 2017-02-11 01:07 | RADRPT ---
EXAM DATE/TIME: 02/11/2017 00:32 [facility] COMPARISON: CT ABDOMEN & PELVIS W CONTRAST, July 22, 2013, 0:15. CT ABDOMEN & PELVIS W/O CONTRAST, August 07, 2015, 5:02. INDICATIONS : Abdominal; pain along with diarrhea ORAL CONTRAST: No oral contrast ingested. RADIATION DOSE: 14.83 CTDIvol (mGy) MEDICAL HISTORY : Hypertension. Cerebrovascular disease. renal disease SURGICAL HISTORY : Appendectomy. Cholecystectomy.Hysterectomy. ENCOUNTER: Initial ACUITY: 1 day PAIN SCALE: 8/10 LOCATION: abdomen TECHNIQUE: Volumetric scanning of the abdomen and pelvis was performed. Using automated exposure control and ad justment of the mA and/or kV according to patient size, radiation dose was kept as low as reasonably achievable to obtain optimal diagnostic quality images. DICOM format image data is available electro nically for review and comparison. FINDINGS: LOWER LUNGS: There are 2 stable 4 mm nodules at the left lung base. Stability since 2013 is indicative of a benign process. LIVER: Homogeneous density without lesion. There is no dilation of the biliary tree. There has been prior cholecystectomy with clips in the gallbladder fossa. Punctate calcifications are present within the l iver. SPLEEN: Normal size without lesion. PANCREAS: Within normal limits. KIDNEYS: Normal in size and shape. There is no mass, stone, or hydronephrosis. There are 2 low-density lesion s in the left kidney measuring 1.5 cm and 6.6 cm. Both have density measurements characteristic of si mple cysts. A 12 mm low-density lesion upper pole right kidney also has features characteristic of a cyst. ADRENAL GLANDS: Within normal limits. VASCULAR: There is no aortic aneurysm. There is moderate atherosclerotic disease. BOWEL/MESENTERY: The stomach, small bowel, and colon demonstrate no acute abnormality. There is no free intraperitone al air or fluid. ABDOMINAL WALL: Within normal limits. RETROPERITONEUM: There is no lymphadenopathy. BLADDER: No wall thickening or mass. REPRODUCTIVE: The uterus is absent. INGUINAL: There is no lymphadenopathy or hernia. MUSCULOSKELETAL: There are degenerative changes of the lumbar spine. CONCLUSION: 1. No acute finding is identified within the abdomen or pelvis. Overall, no significant change is scarlett ntified. 2. Nonacute findings include moderate atherosclerotic disease and bilateral renal cysts Trenton Pastrana MD on February 11, 2017 at 1:01 Board Certified Radiologist. This report was verified electronically.
[2017-02-11 02:25] LABS: BLOOD, URINE NEG (NEG); COMMENT (UR) CULT NOT INDICATED; CULTURE IF INDICATED CULT NOT INDICATED; GLUCOSE,URINE NEG (NEG); KETONE, URINE NEG (NEG); NITRITE,URINE NEG (NEG); URINE COLOR LIGHT-YELLOW (YELLW/STRAW)
[2017-02-11] MEDS ORDERED: TYLE325T PO (02:43)
== END 2017-02-11 02:49 | disposition home or self-care (01) ==
LOC: NEPC 22:29
DX: R10.33 Periumbilical pain (principal); R19.7 Diarrhea, unspecified; R11.0 Nausea; J45.909 Unspecified asthma, uncomplicated; M13.80 Other specified arthritis, unspecified site; E11.9 Type 2 diabetes mellitus without complications; K21.9 Gastro-esophageal reflux disease without esophagitis; I10 Essential (primary) hypertension; Z86.73 Personal history of transient ischemic attack (TIA), and cerebral infarction without residual deficits
CPT/HCPCS: 74176; 80053; 81001; 83690; 85025; 96361; 96374; 96375; 99285; J2270; J2405; J7030

== ENCOUNTER 2017-03-02 02:02 | Emergency (ER) | payer OTHER ==
[~2017-03-02] VITALS: Ht 160 cm; Wt 85.0 kg
[~2017-03-02 02:02] MED LIST changes: +TYLE325T PO
[2017-03-02 02:04] VITALS: BP 120/74; PULSE 75; RESP 16; TEMP 97.9; O2SAT 96
[2017-03-02 03:05] VITALS: BP 133/60; PULSE 80; RESP 18; O2SAT 100
[2017-03-02] MEDS ORDERED: BECL80AE3 INH (03:09)
[2017-03-02] MEDS ORDERED: SODIUM CHLOR 0.9% 1000 ML INJ 1,000 ML IV ONE (03:15)
--- NOTE | 2017-03-02 03:16 | PD ---
HPI Chief Complaint: GI Complaint Time Seen by Provider: 03:03 Travel History International Travel<30 days: No Contact w/Intl Traveler<30days: No Traveled to known affect area: No History of Present Illness HPI Patient is an 86-year-old female who presents to emergency room with complaints of diarrhea. She reports that she has had about 8-10 episodes of diarrhea since yesterday. Patient reports that her diarrhea is yellow and watery in nature. Reports a foul-smelling diarrhea. Patient reports that she is having lower abdominal cramping with her symptoms. Denies fever/chills. Denies nausea or vomiting. Reports no sick contacts, no recent antibiotics, no recent travels. Denies fever/chills. PFSH Past Medical History Hx Anticoagulant Therapy: Yes Arthritis: Yes Asthma: Yes Autoimmune Disease: No Blood Disorders: No Heart Rhythm Problems: No Cancer: No Cardiac Catheterization: No Cardiovascular Problems: Yes High Cholesterol: Yes Chemotherapy: No Chest Pain: No Congestive Heart Failure: No COPD: No Cerebrovascular Accident: Yes (TIA) Diabetes: Yes Patient Takes Glucophage: No Diminished Hearing: No Endocrine: No Gastrointestinal Disorders: Yes GERD: Yes Genitourinary: No Headaches: Yes (Patient states shes been admitted today (01/28/17) with a headache. ) Hepatitis: No Hiatal Hernia: No Hypertension: Yes Immune Disorder: No Implanted Vascular Access Dvce: Yes Kidney Stones: No Musculoskeletal: No Neurologic: No Psychiatric: No Reproductive: No Respiratory: No Integumentary: Yes Immunizations Current: No Migraines: Yes Myocardial Infarction: No Radiation Therapy: No Renal Failure: No Seizures: No Sleep Apnea: No Thyroid Disease: No Ulcer: No Tetanus Vaccination: > 5 Years Influenza Vaccination: Yes PNEUMOCCOCAL Vaccine (Year): 2009 ?: Not Menopausal: Yes : 5 Para: 5 Miscarriage: 0 : 0 Past Surgical History Abdominal Surgery: Yes ( ) Appendectomy: Yes Body Medical Devices: KNEE Cardiac Surgery: No Cholecystectomy: Yes Coronary Artery Bypass Graft: No Ear Surgery: No Endocrine Surgery: No Eye Surgery: Yes (taylor cataracts removed) Genitourinary Surgery: No Gynecologic Surgery: Yes Hysterectomy: Yes Insulin Pump: No Joint Replacement: No Oral Surgery: No Pacemaker: No Thoracic Surgery: No Other Surgery: Yes (RIGHT CARPAL TUNNEL; LYMPH NODE REMOVAL NECK) Social History Alcohol Use: No Tobacco Use: No Substance Use: No Allergies-Medications (Allergen,Severity, Reaction): Coded Allergies: cyclobenzaprine (Unverified Allergy, Intermediate, DIZZY, 03/02/17) aspirin (Unverified Adverse Reaction, Mild, 03/02/17) upset stomach Reported Meds & Prescriptions Reported Meds & Active Scripts Active Tylenol (Acetaminophen) 325 Mg Tab 325 Mg PO Q4H PRN Torsemide 5 Mg Tab 5 Mg PO BID@,18 Coreg (Carvedilol) 6.25 Mg Tab 6.25 Mg PO Q12HR Reported Qvar Inh (Beclomethasone Dipropionate) 80 Mcg/Act Aero 1 Puff INH BID Cod Liver Oil Softgel (Om3/Dha/Epa/Cod Liver Oil/A/D3) 1 Each Capsule 1 Cap PO DAILY Lipitor (Atorvastatin Calcium) 80 Mg Tab 80 Mg PO HS Losartan (Losartan Potassium) 100 Mg Tab 100 Mg PO DAILY Clopidogrel (Clopidogrel Bisulfate) 75 Mg Tab 75 Mg PO DAILY Vitamin D3 (Cholecalciferol) 1,000 Unit Tab 1,000 Units PO DAILY Lantus Inj (Insulin Glargine) 1,000 Unit/10 Ml Vial 11 Units SQ DAILY @1100 Levothyroxine (Levothyroxine Sodium) 50 Mcg Tab 50 Mcg PO DAILY Divalproex ER (Divalproex Sodium) 250 Mg Haylee 250 Mg PO DAILY Review of Systems General / Constitutional: No: Fever Eyes: No: Visual changes HENT: No: Headaches Cardiovascular: No: Chest Pain or Discomfort Respiratory: No: Shortness of Breath Gastrointestinal: Positive: Diarrhea, Abdominal Pain Genitourinary: No: Dysuria Musculoskeletal: No: Pain Skin: No Rash Neurologic: No: Weakness Psychiatric: No: Depression Endocrine: No: Polydipsia Hematologic/Lymphatic: No: Easy Bruising Physical Exam Narrative GENERAL: Mild distress SKIN: Focused skin assessment warm/dry. HEAD: Atraumatic. Normocephalic. EYES: Pupils equal and round. No scleral icterus. No injection or drainage. ENT: No nasal bleeding or discharge. Mucous membranes pink and moist. NECK: Trachea midline. No JVD. CARDIOVASCULAR: Regular rate and rhythm. No murmur appreciated. RESPIRATORY: No accessory muscle use. Clear to auscultation. Breath sounds equal bilaterally. GASTROINTESTINAL: Abdomen soft, mildly tender to lower abdomen, nondistended. Hepatic and splenic margins not palpable. MUSCULOSKELETAL: No obvious deformities. No clubbing. No cyanosis. No edema. NEUROLOGICAL: Awake and alert. No obvious cranial nerve deficits. Motor grossly within normal limits. Normal speech. PSYCHIATRIC: Appropriate mood and affect; insight and judgment normal. Data Data Last Documented VS Vital Signs Date Time Temp Pulse Resp B/P (MAP) Pulse Ox O2 Delivery O2 Flow Rate FiO2 03/02/17 05:03 62 16 152/64 (93) 97 Room Air 03/02/17 02:04 97.9 Orders Orders Complete Blood Count With Diff (03/02/17 03:11) Comprehensive Metabolic Panel (03/02/17 03:11) Prothrombin Time / Inr (Pt) (03/02/17 03:11) Act Partial Throm Time (Ptt) (03/02/17 03:11) Urinalysis - C+S If Indicated (03/02/17 03:11) Iv Access Insert/Monitor (03/02/17 03:11) Sodium Chlor 0.9% 1000 Ml Inj (Ns 1000 M (03/02/17 03:15) C Diff Toxin Pcr (03/02/17 03:11) Ct Abd/Pel W/O Iv Contrast (03/02/17 03:11) Morphine Inj (Morphine Inj) (03/02/17 03:45) Labs Laboratory Tests Test 03/02/17 03:20 03/02/17 03:50 White Blood Count 9.7 TH/MM3 Red Blood Count 4.09 MIL/MM3 Hemoglobin 11.6 GM/DL Hematocrit 35.5 % Mean Corpuscular Volume 86.7 FL Mean Corpuscular Hemoglobin 28.4 PG Mean Corpuscular Hemoglobin Concent 32.7 % Red Cell Distribution Width 13.7 % Platelet Count 192 TH/MM3 Mean Platelet Volume 10.4 FL Neutrophils (%) (Auto) 63.3 % Lymphocytes (%) (Auto) 23.6 % Monocytes (%) (Auto) 7.4 % Eosinophils (%) (Auto) 4.6 % Basophils (%) (Auto) 1.1 % Neutrophils # (Auto) 6.1 TH/MM3 Lymphocytes # (Auto) 2.3 TH/MM3 Monocytes # (Auto) 0.7 TH/MM3 Eosinophils # (Auto) 0.4 TH/MM3 Basophils # (Auto) 0.1 TH/MM3 CBC Comment DIFF FINAL Differential Comment Prothrombin Time 11.5 SEC Prothromb Time International Ratio 1.0 RATIO Activated Partial Thromboplast Time 25.3 SEC Blood Urea Nitrogen 40 MG/DL Creatinine 1.87 MG/DL Random Glucose 154 MG/DL Total Protein 7.9 GM/DL Albumin 3.7 GM/DL Calcium Level 8.6 MG/DL Alkaline Phosphatase 73 U/L Aspartate Amino Transf (AST/SGOT) 15 U/L Alanine Aminotransferase (ALT/SGPT) 23 U/L Total Bilirubin 0.4 MG/DL Sodium Level 138 MEQ/L Potassium Level 4.5 MEQ/L Chloride Level 107 MEQ/L Carbon Dioxide Level 21.0 MEQ/L Anion Gap 10 MEQ/L Estimat Glomerular Filtration Rate 31 ML/MIN Urine Color YELLOW Urine Turbidity HAZY Urine pH 5.0 Urine Specific [place] 1.016 Urine Protein TRACE mg/dL Urine Glucose (UA) NEG mg/dL Urine Ketones NEG mg/dL Urine Occult Blood NEG Urine Nitrite NEG Urine Bilirubin NEG Urine Urobilinogen 2.0 MG/DL Urine Leukocyte Esterase MOD Urine RBC 1 /hpf Urine WBC 8 /hpf Urine Squamous Epithelial Cells 2 /hpf Urine Bacteria RARE /hpf Urine Hyaline Casts 63 /lpf Urine Mucus FEW /lpf Microscopic Urinalysis Comment CULT NOT INDICATED MDM Medical Decision Making Medical Screen Exam Complete: Yes Emergency Medical Condition: Yes Interpretation(s) Vital Signs Date Time Temp Pulse Resp B/P (MAP) Pulse Ox O2 Delivery O2 Flow Rate FiO2 03/02/17 03:05 80 18 133/60 (84) 100 Room Air 03/02/17 02:04 97.9 75 16 120/74 (89) 96 Room Air Differential Diagnosis Differential includes colitis, C. difficile colitis, electrolyte abnormality, viral syndrome Narrative Course 86-year-old female who presents to emergency room complaints of watery diarrhea for the past [address] of abdomen and pelvis ordered. Stool cultures ordered as well. Vital Signs Date Time Temp Pulse Resp B/P (MAP) Pulse Ox O2 Delivery O2 Flow Rate FiO2 03/02/17 03:05 80 18 133/60 (84) 100 Room Air 03/02/17 02:04 97.9 75 16 120/74 (89) 96 Room Air Laboratory Tests Test 03/02/17 03:20 03/02/17 03:50 White Blood Count 9.7 TH/MM3 (4.0-11.0) Red Blood Count 4.09 MIL/MM3 (4.00-5.30) Hemoglobin 11.6 GM/DL (11.6-15.3) Hematocrit 35.5 % (35.0-46.0) Mean Corpuscular Volume 86.7 FL (80.0-100.0) Mean Corpuscular Hemoglobin 28.4 PG (27.0-34.0) Mean Corpuscular Hemoglobin Concent 32.7 % (32.0-36.0) Red Cell Distribution Width 13.7 % (11.6-17.2) Platelet Count 192 TH/MM3 (150-450) Mean Platelet Volume 10.4 FL (7.0-11.0) Neutrophils (%) (Auto) 63.3 % (16.0-70.0) Lymphocytes (%) (Auto) 23.6 % (9.0-44.0) Monocytes (%) (Auto) 7.4 % (0.0-8.0) Eosinophils (%) (Auto) 4.6 % (0.0-4.0) Basophils (%) (Auto) 1.1 % (0.0-2.0) Neutrophils # (Auto) 6.1 TH/MM3 (1.8-7.7) Lymphocytes # (Auto) 2.3 TH/MM3 (1.0-4.8) Monocytes # (Auto) 0.7 TH/MM3 (0-0.9) Eosinophils # (Auto) 0.4 TH/MM3 (0-0.4) Basophils # (Auto) 0.1 TH/MM3 (0-0.2) CBC Comment DIFF FINAL Differential Comment Prothrombin Time 11.5 SEC (9.8-11.6) Prothromb Time International Ratio 1.0 RATIO Activated Partial Thromboplast Time 25.3 SEC (24.3-30.1) Blood Urea Nitrogen 40 MG/DL (7-18) Creatinine 1.87 MG/DL (0.50-1.00) Random Glucose 154 MG/DL (74-106) Total Protein 7.9 GM/DL (6.4-8.2) Albumin 3.7 GM/DL (3.4-5.0) Calcium Level 8.6 MG/DL (8.5-10.1) Alkaline Phosphatase 73 U/L (45-117) Aspartate Amino Transf (AST/SGOT) 15 U/L (15-37) Alanine Aminotransferase (ALT/SGPT) 23 U/L (10-53) Total Bilirubin 0.4 MG/DL (0.2-1.0) Sodium Level 138 MEQ/L (136-145) Potassium Level 4.5 MEQ/L (3.5-5.1) Chloride Level 107 MEQ/L (98-107) Carbon Dioxide Level 21.0 MEQ/L (21.0-32.0) Anion Gap 10 MEQ/L (5-15) Estimat Glomerular Filtration Rate 31 ML/MIN (>89) Urine Color YELLOW (YELLW/STRAW) Urine Turbidity HAZY (CLEAR) Urine pH 5.0 (5.0-8.5) Urine Specific [place] 1.016 (1.002-1.035) Urine Protein TRACE mg/dL (NEG-TRACE) Urine Glucose (UA) NEG mg/dL (NEG) Urine Ketones NEG mg/dL (NEG) Urine Occult Blood NEG (NEG) Urine Nitrite NEG (NEG) Urine Bilirubin NEG (NEG) Urine Urobilinogen 2.0 MG/DL (LESS THAN Urine Leukocyte Esterase MOD (NEG) Urine RBC 1 /hpf (0-3) Urine WBC 8 /hpf (0-5) Urine Squamous Epithelial Cells 2 /hpf (0-5) Urine Bacteria RARE /hpf (NONE) Urine Hyaline Casts 63 /lpf (RARE) Urine Mucus FEW /lpf (OCC) Microscopic Urinalysis Comment CULT NOT INDICATED cbc: wnl bmp: wnl for patient, bun/cr: 40/1.87 which is baseline for patient UA: mod leuk esterase, 8wbc, rare bacteria, 63 hyaline case c.diff pending Ct of abd/pelvis: no acute abnormality. multiple benign granulomas within each lung base. Patient re-evaluated, patient feeling much better at this time. Patient reports relief of symptoms at this time. Patient will follow up with all cultures from today, she will return to ER as needed. Signs and symptoms of when to return to the ER was reviewed with patient in detail Diagnosis Primary Impression: Abdominal pain Qualified Codes: R10.9 - Unspecified abdominal pain Additional Impression: Diarrhea Qualified Codes: R19.7 - Diarrhea, unspecified Patient Instructions: General Instructions, Narcotic given in the ED Additional Instructions: Please drink plenty of fluids Please follow up with your primary care doctor Return to ER if symptoms progress or worsen Return to ER as needed Please follow up with all cultures from today Disposition: 01 DISCHARGE HOME Condition: Stable Alexsandra Israel DO Mar 02, 2017 03:16
[2017-03-02 03:30] LABS: AUTOMATED NEUTROPHIL # 6.1 TH/MM3 (1.8-7.7); BASOPHIL # 0.1 TH/MM3 (0-0.2); BASOPHIL % 1.1 % (0.0-2.0); EOSINOPHIL # 0.4 TH/MM3 (0-0.4); EOSINOPHIL % 4.6 % (0.0-4.0); HEMATOCRIT 35.5 % (35.0-46.0); HEMO FLAGS DIFF FINAL; LYMPH % 23.6 % (9.0-44.0); LYMPHOCYTE # 2.3 TH/MM3 (1.0-4.8); MEAN CELL VOLUME 86.7 FL (80.0-100.0); MEAN CORPUSCULAR HEMOGLOBIN 28.4 PG (27.0-34.0); MEAN CORPUSCULAR HGB CONC 32.7 % (32.0-36.0); MONO % 7.4 % (0.0-8.0); NEUT % 63.3 % (16.0-70.0); PLATELET COUNT 192 TH/MM3 (150-450); RED BLOOD COUNT 4.09 MIL/MM3 (4.00-5.30); RED CELL DISTRIBUTION WIDTH 13.7 % (11.6-17.2); WHITE BLOOD COUNT 9.7 TH/MM3 (4.0-11.0)
[2017-03-02] MEDS ORDERED: MORPHINE SULFATE 4 MG/ML INJ IV PUSH ONE (03:45)
[2017-03-02 03:46] LABS: ALT (GPT) 23 U/L (10-53); ANION GAP 10 MEQ/L (5-15); AST (GOT) 15 U/L (15-37); BLOOD UREA NITROGEN 40 MG/DL (7-18); CHLORIDE 107 MEQ/L (98-107); GLOMERULAR FILTRATION RATE 31 ML/MIN (>89); POTASSIUM 4.5 MEQ/L (3.5-5.1); SODIUM (NA) 138 MEQ/L (136-145)
[2017-03-02 03:48] LABS: ALKALINE PHOSPHATASE 73 U/L (45-117); TOTAL BILIRUBIN ADULT 0.4 MG/DL (0.2-1.0)
[2017-03-02 03:51] LABS: APTT (PATIENT) 25.3 SEC (24.3-30.1); PROTHROMBIN TIME - PATIENT 11.5 SEC (9.8-11.6)
[2017-03-02 04:11] LABS: BACTERIA, URINE RARE /hpf; BLOOD, URINE NEG (NEG); COMMENT (UR) CULT NOT INDICATED; CULTURE IF INDICATED CULT NOT INDICATED; GLUCOSE,URINE NEG (NEG); HYALINE CAST, URINE 63 /lpf (RARE); KETONE, URINE NEG (NEG); MUCUS URINE FEW /lpf (OCC); NITRITE,URINE NEG (NEG); SQUAMOUS EPITHELIAL CELL URINE 2 /hpf (0-5); URINE COLOR YELLOW (YELLW/STRAW)
--- NOTE | 2017-03-02 04:24 | RADRPT ---
EXAM DATE/TIME: 03/02/2017 04:00 [facility] COMPARISON: CT ABDOMEN & PELVIS W CONTRAST, July 22, 2013, 0:15. CT ABDOMEN & PELVIS W/O CONTRAST, January, 0:32. INDICATIONS : Diarrhea x3 days. ORAL CONTRAST: No oral contrast ingested. RADIATION DOSE: 10.63 CTDIvol (mGy) MEDICAL HISTORY : Cardiovascular disease. Gastroesophageal reflux disease. Hypertension.CVA. Diabetes. SURGICAL HISTORY : Appendectomy. Hysterectomy. ENCOUNTER: Initial ACUITY: 3 days PAIN SCALE: 0/10 LOCATION: Bilateral abdomen TECHNIQUE: Volumetric scanning of the abdomen and pelvis was performed. Using automated exposure control and ad justment of the mA and/or kV according to patient size, radiation dose was kept as low as reasonably achievable to obtain optimal diagnostic quality images. DICOM format image data is available electro nically for review and comparison. FINDINGS: LOWER LUNGS: Multiple long-term stable sub-1 cm pulmonary nodules within the lung bases. No infiltrates or effusio ns. LIVER: Homogeneous density without lesion. There is no dilation of the biliary tree. Gallbladder is surgica lly absent. SPLEEN: Normal size without lesion. PANCREAS: Within normal limits. KIDNEYS: Normal in size and shape. There is no mass, stone, or hydronephrosis. Small bilateral cortical renal cysts. 6.6 cm dominant renal cyst involving the upper pole of the left kidney. Hounsfield units are 9. ADRENAL GLANDS: Within normal limits. VASCULAR: There is no aortic aneurysm. BOWEL/MESENTERY: The stomach, small bowel, and colon demonstrate no acute abnormality. There is no free intraperitone al air or fluid. ABDOMINAL WALL: Within normal limits. RETROPERITONEUM: There is no lymphadenopathy. BLADDER: No wall thickening or mass. REPRODUCTIVE: Within normal limits. INGUINAL: There is no lymphadenopathy or hernia. MUSCULOSKELETAL: Within normal limits for patient age. CONCLUSION: 1. No acute abnormality. 2. Multiple benign granulomas within each lung base. 3. Prior cholecystectomy. Ap Nuñez Jr., MD on March 02, 2017 at 4:18 Board Certified Radiologist. This report was verified electronically.
[2017-03-02 05:03] VITALS: BP 152/64; PULSE 62; RESP 16; O2SAT 97
[2017-03-02 05:19] LABS: C. DIFF EPI 027 PRESUMPTIVE NEGATIVE (NEGATIVE)
== END 2017-03-02 05:57 | disposition home or self-care (01) ==
LOC: NEPC 02:02
DX: R10.9 Unspecified abdominal pain (principal); R19.7 Diarrhea, unspecified; J45.909 Unspecified asthma, uncomplicated; E78.00 Pure hypercholesterolemia, unspecified; Z86.73 Personal history of transient ischemic attack (TIA), and cerebral infarction without residual deficits; E11.9 Type 2 diabetes mellitus without complications; I10 Essential (primary) hypertension
CPT/HCPCS: 74176; 80053; 81001; 85025; 85610; 85730; 87493; 96374; 99285; J2270; J7030